=== PATIENT | female | born 1940 | race Caucasian/White ===

== ENCOUNTER → 2023-12-13 11:00 | Outpatient (REF) | payer MEDICARE, BC, SELFPAY | LOC: RAD 11:00 | PROVIDERS: ATTENDING PHYSICIAN Nurse Practitioner; FAMILY PHYSICIAN Family Medicine | DX: M25.561 Pain in right knee (principal) | CPT/HCPCS: 73564 ==

== ENCOUNTER 2025-01-12 23:44 | Inpatient (IN) | payer MEDICARE, BC, SELFPAY ==
[2025-01-12 21:33] VITALS: BP 154/61
[2025-01-12 21:38] VITALS: BP 154/61
[2025-01-12 21:42] VITALS: BMI 19.4
[2025-01-12 22:00] VITALS: BP 172/72
[2025-01-12 22:55] LABS: Hematocrit 27.6 % (37.0-47.0); Hemoglobin 8.9 g/dL (12.0-16.0); Mean Corp Hgb Conc. 32.2 g/dL (33.0-37.0); Mean Corpuscular Volume 82.4 fL (81.0-99.0); Nucleated Red Blood Cells % 0 %; Platelet Count 290 10^3/uL (130-400); Red Cell Dist. Width 15.0 % (11.5-14.5)
--- NOTE | 2025-01-12 22:59 | ED.MUSCINJ ---
HPI-Injury
General
Chief Complaint: Fall
Source: patient
Exam Limitations: none
Time Seen by Provider: 01/12/25 22:21
Nursing documentation reviewed up to this point in time: agreed with
History of Present Illness-Injury
Is this injury a work related problem?: No
Is pt an associate of [facility]/[place]?: No
Initial Injury comments:
84-year-old female from her private home slip and fall with left hip pain, onset just prior to arrival came via EMS no head strike no chest pain or shortness of breath, she lives with her , denies any blood thinner use,
Past History
Past History
ED Past Medical History: Other (Osteoporosis); Negative CAD, HTN or Hypercholesterolemia
Social History
Tobacco: Non-smoker
Alcohol: Daily (1 class of wine)
Drug: None
Personal:
Living: with family
Phy Exam
Physical Exam
Physical Exam:
Physical Exam
General: Elderly female complaining of left hip pain
Neck: No tongue bite no overt signs of head or neck trauma
Heart: s1/s2 regular rate and rhythm, no murmur. equal radial pulses.
Lungs: no acute respiratory distress. clear bilaterally
Abdomen: Not tender
Neuro: alert and oriented. no focal neurological deficits
Skin: no rash
Psychiatric: well kept. interactive and cooperative
Extremities: Left hip held in flexion modest pain with range of motion
Injury Course
Orders/Labs/Results
Orders:
Orders
01/12/25 22:35
Electrocardiogram (*1) Urgent
Reason for Study: Other
Other Reason for Exam: trauma
Cardiac Monitoring- Treatment ONCE
EKG- Treatment ONCE
Morphine Sulfate 4 mg IV NOW STA
CR Hip - LT w/wo Pel 2-3 Vw* Urgent
Comment:
Reason For Exam: pain fal
Include a pelvis x-ray?: Yes
01/12/25 22:47
Type+Screen Urgent
Complete Blood Count/With Diff Urgent
Comprehensive Metabolic Panel Urgent
Abnormal Lab Results
01/12/25
22:47
RBC 3.35 L 10^6/uL
(4.20-5.40)
Hgb 8.9 L g/dL
(12.0-16.0)
Hct 27.6 L %
(37.0-47.0)
MCH 26.6 L pg
(27.0-31.0)
MCHC 32.2 L g/dL
(33.0-37.0)
RDW 15.0 H %
(11.5-14.5)
MPV 11.2 H fL
(7.4-10.4)
Abs Immat Gran (auto) 0.1 H 10^3/uL
(0-0.05)
Absolute Monos (auto) 0.7 H 10^3/uL
(0.1-0.6)
Immature Gran % 0.7 H %
(0-0.5)
01/12/25 22:47
MDM/Problems Addressed
Differential Diagnosis Includes:
Hip contusion hip fracture pelvic fracture femur fracture
*Radiology
Radiology exam reviewed: preliminary read by ED provider
*Pulse Oximetry
SaO2: 96
Oxygen Mode of Delivery: Room air
Patient hypoxic: no
*EKG
Interpreted by ED Provider?: Yes
Interpretation: normal
Comparison EKG: no comparison EKG present
Heart Rate: 76
Rate: normal
Rhythm: sinus
Ischemia: non-specific ST changes
*Lsw Interpretation
Rate: normal
Interpretation: normal
Heart Rate: 78
Rhythm: sinus
*Critical Care Note
Total Time (30-74mins, 75-104mins- exclusive of procedures): Not Applicable
Update Note
Update Note:
11 PM update x-ray noted
Message sent to hospitalist and orthopedist on-call
ED Attending Note
-
Portions of this chart may have been created with voice recognition software.� Occasional wrong word or��sound alike� substitutions may have occurred due to the inherent limitations of voice recognition software.
Discharge Plan
Departure
Patient Disposition: Admit
Date of Disposition: 01/12/25
Time of Disposition: 23:05
Admit to: Med/Surg
Presentation/result/management discussed w/ accepting MD/DO: Hospitalist
Patient with high blood pressure during this ER visit?: No
Condition: Fair
Discharge Problem:
Closed fracture of left hip
Prescriptions:
No Action
acetaminophen 325 mg Tablet
650 mg PO Q6HPRN PRN (Reason: mild pain/ fever>100.5F) Qty: 30 0RF
alendronate [Fosamax] 70 mg Tablet
70 mg PO DYKES
multivitamin Tablet
1 tab PO DAILY
[place] 3
1 cap PO DAILY
Probiotic
1 tab PO DAILY
lidocaine 4 % Adhesive Patch,Medicated
1 patch topical DAILY Qty: 10 0RF
Rx Instructions:
lower back
furosemide 20 mg Tablet
20 mg PO DAILY 30 Days Qty: 30 0RF
nifedipine 30 mg Tablet Extended Release
30 mg PO DAILY 30 Days Qty: 30 0RF
sodium chloride 1,000 mg Tablet,Soluble
1,000 mg PO BID 30 Days Qty: 60 0RF
Referrals:
Tucker Castrejon MD [Family Provider, Family Practice]
Interventions
Interventions:
*ED COVID-19 Vaccine History Last Done: 01/12/25 21:41
*ED Influenza Vaccine History Last Done: 01/12/25 21:41
ED-Musculoskeletal Assessment Last Done: 01/12/25 22:48
ED- Neurological Assessment Last Done: 01/12/25 22:48
ED-Skin Assessment Last Done: 01/12/25 22:49
Discharge Date and Time
Print Language: MALAWIAN
[2025-01-12 23:13] LABS: ALT (SGPT) 19 U/L (0-35); AST (SGOT) 30 U/L (14-36); Albumin 4.3 g/dl (3.5-5.0); Alkaline Phosphatase 55 U/L (38-126); Blood Urea Nitrogen 26 mg/dl (7-17); Calcium 9.2 mg/dl (8.4-10.2); Carbon Dioxide 26 mmol/L (22-30); Chloride 100 mmol/L (98-107); Estimated Creatinine Clearance 53 ml/min; Glucose 91 mg/dl (70-99); Potassium 4.4 mmol/L (3.5-5.1); Sodium 132 mmol/L (135-145); Total Protein 6.9 g/dl (6.3-8.2); eGFR > 60.00
--- NOTE | 2025-01-12 23:25 | HPS.HSE ---
Family Physician
-
Family Physician: Tucker Castrejon
Chief Complaint
-
Fall
History of Present Illness
This is a 84-year-old female past medical history significant hypertension, osteoporosis presenting to the emergency department following a slip and fall.
There was no loss of consciousness. She denied any head strike, she denies any chest pain, she denied feeling dizzy lightheaded short of breath or having chest pain nausea vomiting or diaphoresis.
In the emergency department patient was found to have a closed fracture of the left hip. Blood pressure was stable at 172/72 with a pulse rate of 69 and he was satting 96% on room air. ECG shows a normal sinus rhythm with a rate of 71 with some
sinus arrhythmia. CBC notable for hemoglobin of 8.9 but otherwise unremarkable. Electrolyte BUN/creatinine were stable.
Medical History
Past Medical History
Past Medical History: Reports Other
Additional Past Medical History:
Osteoporosis
Past Surgical History: Reports None
Social History
Tobacco: Non-smoker
Alcohol: Occasional
Drug: None
Personal:
Living: With Family
Family History
Family History: Not pertinent
Allergies / Home Medications
Allergies reflects when Allergies were last updated in [employer].
Home Medications with original date entered in [employer]
Allergy/Medication List:
Allergies
Allergy/AdvReac Type Severity Reaction Status Date / Time
No Known Allergies Allergy Verified 02/22/23 11:35
Home Medications
acetaminophen 325 mg tablet 650 mg PO Q6HPRN PRN mild pain/ fever>100.5F #30 tabs 11/29/22
[place] 3 1 cap PO DAILY 02/22/23
Probiotic 1 tab PO DAILY 02/22/23
alendronate 70 mg tablet (Fosamax) 70 mg PO DYKES 02/22/23
akphyso-xhfnuglryzlkk-nzcrtiok 250 mg-250 mg-65 mg tablet (Excedrin Migraine) 2 tab PO DAILYPRN PRN mild pain 02/22/23
ibuprofen 200 mg capsule 400 mg PO Q6HPRN PRN mild pain 02/22/23
multivitamin 1 tab PO DAILY 02/22/23
Review of Systems
-
Constitutional: Reports No Symptoms
EENT: Reports No Symptoms
Respiratory: Reports No Symptoms
Cardiac: Reports No Symptoms
Abdomen/GI: Reports No Symptoms
: Reports No Symptoms
Musculoskeletal: Reports Joint Pain
Skin: Reports No Symptoms
Neurological: Reports No Symptoms
Endocrine: Reports No Symptoms
Hematologic/Lymphatic: Reports No Symptoms
Psych: Reports No Symptoms
Physical Exam
Vital Signs
Vital Signs
Temp Pulse Resp BP Pulse Ox
97.6 F 69 22 172/72 96
01/12/25 21:33 01/12/25 22:00 01/12/25 22:00 01/12/25 22:00 01/12/25 23:01
Physical Exam
General: Well Developed and Conversant
HEENT: NormoCephalic and Atraumatic
Respiratory: Clear and Non Labored Respirations
Cardiac: S1/S2 and Regular Rhythm
Breast: Deferred by me
GI: Soft, Non Tender and Normal Bowel Sounds (hyperactive )
Rectal: Deferred by Provider
Musculoskeletal: No Edema and Other
Skin: Warm and Dry
Neuro: Awake and AO x 3
Hematologic/Lymphatic: No Lymphadenopathy
Psych: Calm
Laboratory Results
-
01/12/25 22:47
01/12/25 22:47
Laboratory Results
Total Bilirubin 0.3 mg/dl (0.2-1.3) 01/12/25 22:47
AST 30 U/L (14-36) 01/12/25 22:47
ALT 19 U/L (0-35) 01/12/25 22:47
Alkaline Phosphatase 55 U/L (38-126) 01/12/25 22:47
Data Reviewed
-
Diagnostic Radiology: Image Personally Visualized and interpreted
Medical Tests (Nuc Med, Echo, EKG etc): Image Personally Visualized and interpreted
Lab Data: Labs Reviewed by me
Impression/Plan
-
IMPRESSION:
84-year-old with history of osteoporosis, hypertension presenting to the emergency department following a slip and fall and found to have a left hip fracture. He is vascularly intact. She she is not on any blood thinners.
PLAN:
Left hip fracture
- Admit to [facility]
-N.p.o. after midnight
-Pain control, gentle hydration
-Fracture order sets
-PT eval
- no thinners pending surgery
- surgery consulted, plan for or in am
DVT PPX - SCDs for now
Code status - full code
[2025-01-12] MEDS: MORPHINE SULFATE 4 MG IV (23:34)
[2025-01-12 23:39] VITALS: BP 158/62
[2025-01-13] VITALS (19 sets, daily range): BP systolic 122–180; BP diastolic 53–71
[2025-01-13] MEDS: SENOKOT PO (03:46)
[2025-01-13] MEDS: COLACE PO (03:46)
[2025-01-13] MEDS: TYLENOL 650 MG PO ×4 (05:32→20:08)
[2025-01-13] MEDS: ROXICODONE 5 MG PO (05:33)
--- NOTE | 2025-01-13 05:55 | CON.ORTHO ---
Consultation
-
Date/Time Consultation Requested: 01/12/2025 @ 23:07
Date/Time Consultation Performed: 01/13/2025 @ 5:30 AM
Requesting Provider: Dr. Elver Gerber DO
Performing Provider: Pablo Smith PA-C for Dr. Mathew Metcalf MD
Reason for Consultation: Left Hip Fracture
Consultation - Orthopedics
History
Orthopedic Surgery Note
CC: Left Hip Pain s/p Mechanical Fall 01/12/2025
HPI: The patient is a 84-year-old female with a past medical history significant for Hypertension and Osteoporosis who presents to [facility] ED following a mechanical slip and fall onto her left hip. She denies any head strike or loss of consciousness.
X-rays obtained in the ED revealed a displaced left proximal femur fracture. She is resting comfortably on her stretcher present, but does endorse pain about the left hip with range of motion. She denies any pain elsewhere present. She ambulates
with a walker for assistance. She lives in a two-story home with her . Orthopedic surgery was consulted for further treatment recommendations moving forward.
PMH/PSH: Hypertension and Osteoporosis.
Medications: Reviewed.
Family History: Family history was reviewed. Noncontributory.
Social history: Nonsmoker, no illicit drugs.
Exam
General appearance: Pleasant. No acute distress.
Head: Normocephalic/atraumatic
Nose: No lesions or discharge.
Skin: No obvious rashes or open wounds
Lungs: No audible wheezing, no cough or sputum production
Musculoskeletal:
LLE:
Physical examination of the left hip reveals no obvious erythema, ecchymosis or lesions. Leg is shortened and externally rotated. Tenderness to palpation about the left hip. No tenderness to palpation about the left knee. (+) [place]. Thigh is
soft and compressible. Calf is soft and nontender. She is able to plantarflex and dorsiflex her left ankle. NVI distally.
Imaging:
Plain radiographs of the left hip, including 4 views, was obtained at today's office encounter and was personally interpreted by myself. On my independent radiographic interpretation, I note a LEFT displaced proximal femur fracture.
Assessment: 84-year-old female with a LEFT displaced proximal femur fracture.
Plan: Unfortunately, Regi sustained a left displaced proximal femur fracture in her fall. Treatment options were discussed with the patient as well as her son (Carl) this morning. Shared decision was to proceed with operative management with a
LEFT hip cephalomedullary nail. The risks, benefits, alternatives, recovery process and potential complications were discussed in detail. She and her son verbalized understanding, and would like to proceed with surgery. We will plan to proceed to
OR later today under the direction of Dr. Metcalf. Surgical and blood consents were signed and scanned into patient chart. A paper copy was left at the OR front end ui developer.
-- NWB to LLE until surgery.
-- Remain NPO
-- Pain control prn. Ice prn for pain and edema control.
-- T+S completed. Hgb 8.9 01/12/2025. Hgb this AM pending.
-- Abx ordered to OR.
-- Orthopedics will continue to follow along.
Allergies / Home Medications
Allergy/AdvReac Type Severity Reaction Status Date / Time
No Known Allergies Allergy Verified 01/12/25 21:40
�Medication �Instructions �Recorded
acetaminophen 325 mg tablet 650 mg (2 x 325 mg) PO Q6HPRN PRN 11/29/22
mild pain/ fever>100.5F #30 tabs
[place] 3 1 cap PO DAILY Supplement 02/22/23
Probiotic 1 tab PO DAILY Supplement 02/22/23
alendronate 70 mg tablet (Fosamax) 70 mg PO DYKES osteoporosis 02/22/23
multivitamin 1 tab PO DAILY Supplement 02/22/23
furosemide 20 mg tablet 20 mg PO DAILY 30 days #30 tabs 02/28/23
lidocaine 4 % topical patch 1 patch topical DAILY #10 ea 02/28/23
nifedipine 30 mg tablet,extended 30 mg PO DAILY 30 days #30 tabs 02/28/23
release
sodium chloride 1,000 mg soluble 1,000 mg PO BID 30 days #60 tabs 02/28/23
tablet
Vital Signs / Lab Results
Temp Pulse Resp BP Pulse Ox
97.6 F 72 13 164/63 96
01/12/25 21:33 01/13/25 02:15 01/13/25 02:15 01/13/25 02:00 01/13/25 02:15
01/12/25 22:47
01/12/25 22:47
[2025-01-13] MEDS: COLACE 100 MG PO ×2 (08:25→20:08)
[2025-01-13] MEDS: PROCARDIA XL (EXTENDED RELEASE) 30 MG PO (08:25)
[2025-01-13] MEDS: SENOKOT 17.2 MG PO ×2 (08:26→20:08)
[2025-01-13] MEDS: SODIUM CHLORIDE 1 GRAM PO (08:26)
--- NOTE | 2025-01-13 09:42 | PHANOTE ---
MED REC NOTE- CALLED PATIENT CAREGIVER AT HOME NURSE AT [phone] FIRST NAME RICHELLE OR [phone]
--- NOTE | 2025-01-13 09:44 | W.PN.HOSP.TC ---
Today's Communication/Plan
-
See plan
Assessment / Plan
Assessment / Plan
Impression:
Left femoral fracture secondary to mechanical fall and osteoporosis
Conditions prior to admission
Osteoporosis with prior history of compression fractures
Chronic ambulatory dysfunction ambulates with walker.
Aortic stenosis, mild by echo 2022
Chronic hyponatremia.
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
Plan
Left femoral fracture secondary to mechanical fall and osteoporosis.
Orthopedic input appreciated with plan for ORIF.
Preoperative clearance:
RCRI result major cardiovascular risk factors with low risk at 0.4-1%
Functional capacity close to 4 METS assuming patient with significant cognitive dysfunction.
Requires no additional preoperative workup.
Aortic stenosis, mild
Left sternal border murmur
ECG normal sinus rhythm with no ischemia
Recent echo 11/27 with LVEF 60-65%, mild aortic stenosis
Volume status compensated.
Hypertension on nifedipine [employer]. Will continue with caution. Avoiding hypotension
Chronic hyponatremia
Sodium 132 upon presentation
Formerly on salt tabs and Lasix.
Monitor postoperatively.
Chronic normocytic anemia
Update iron and B12 stores
Update TSH
Full code.
Anticipated Discharge: > 48 hours
Subjective/Interval History
-
Date of Service: January 13, 2025
Objective Data
-
Labs:
Laboratory Results
01/12/25
22:47
WBC 7.2
Hgb 8.9 L
Hct 27.6 L
Plt Count 290
Sodium 132 L
Potassium 4.4
Chloride 100
Carbon Dioxide 26
BUN 26 H
Creatinine 0.7
Glucose 91
Calcium 9.2
Total Bilirubin 0.3
AST 30
ALT 19
Alkaline Phosphatase 55
Vital Signs:
Vital Signs
Temp Pulse Resp BP Pulse Ox
97.9 F 68 20 180/71 96
01/13/25 09:02 01/13/25 09:02 01/13/25 09:02 01/13/25 09:02 01/13/25 09:02
Physical Exam
-
General: Well Developed and No Apparent Distress
HEENT: Normocephalic, Atraumatic and Moist Mucous Membranes
Respiratory: Clear to Auscultation
Cardiac: Regular Rhythm, S1/S2 and Murmur (4/6 systolic at the left sternal border); Negative Rub or Gallop
GI: Soft, Nontender, Nondistended and Normal Bowel Sounds; Negative Organomegaly
Rectal: Deferred by Provider
Musculoskeletal: No Clubbing, No Cyanosis and No Edema
Skin: Negative Rash
Neuro: Nonfocal/Grossly Intact
[2025-01-13 10:24] LABS: Iron 39 ug/dl (37-170)
[2025-01-13 10:33] LABS: Total Iron Binding Capacity 419 ug/dl (265-497)
[2025-01-13 12:02] LABS: TSH 1.67 uIU/ml (0.47-4.68)
[2025-01-13 12:06] LABS: Ferritin 12.2 ng/ml (11.1-264.0)
[2025-01-13 12:21] LABS: Vitamin B12 387 pg/ml (239-931)
[2025-01-13] MEDS: MORPHINE SULFATE 1 MG IV (14:04)
[2025-01-13] MEDS: TYLENOL PO (15:50)
--- NOTE | 2025-01-13 16:15 | PTCARENOTE ---
report given to OR nurse and pt transferred to OR with belongings
--- NOTE | 2025-01-13 20:23 | PTCARENOTE ---
19:46 pt rec'vd from PACU, assessed left gamma nail sx site with PACU nurse, sites drsging intact, scant drainage noted, pt drowsy but easily arousable to voice. Pt oriented to unit.
[2025-01-14] VITALS (8 sets, daily range): BP systolic 112–167; BP diastolic 41–76; PULSE 63–74; O2SAT 96–99
[2025-01-14] MEDS: TYLENOL 650 MG PO ×6 (00:01→19:58)
[2025-01-14 07:41] LABS: Hematocrit 25.0 % (37.0-47.0); Hemoglobin 7.9 g/dL (12.0-16.0); Mean Corp Hgb Conc. 31.6 g/dL (33.0-37.0); Mean Corpuscular Volume 86.5 fL (81.0-99.0); Nucleated Red Blood Cells % 0 %; Platelet Count 233 10^3/uL (130-400); Red Cell Dist. Width 15.0 % (11.5-14.5)
--- NOTE | 2025-01-14 07:51 | W.PN.ORTHO ---
Today's Communication / Plan
-
POD #1 s/p left hip gamma nail 01/13/[address] Metcalf.
-WBAT with walker.
-PT/OT as able.
-DVT prophylaxis - defer to primary team preferences.
-Dressings to remain in place x 1 week.
-[place] to come out at 2 weeks post op.
-Appreciate case management and PT recommendations for discharge once stable.
-Will continue to follow along.
Assessment
.
Distal Motor Intact: Yes
Dressing:
Clean, dry and intact.
Assessment:
POD #1 s/p left hip gamma nail 01/13/[address] Metcalf.
-WBAT with walker.
-PT/OT as able.
-DVT prophylaxis - defer to primary team preferences.
-Dressings to remain in place x 1 week.
-[place] to come out at 2 weeks post op.
-Appreciate case management and PT recommendations for discharge once stable.
-Will continue to follow along.
Plan
.
Surgery / Date: 01/13/[address] Metcalf
Activity:
Out of bed.
PT/OT
Subjective
.
.:
Patient resting comfortably in bed. No complaints of pain at rest.
Vital Signs and Labs
.
Vital Signs and Labs:
Lab Results
01/14/25 06:07
Temp Pulse Resp BP Pulse Ox
97.6 F 71 16 167/65 97
01/14/25 03:03 01/14/25 03:03 01/14/25 03:03 01/14/25 03:03 01/14/25 03:03
Physical Exam
-
Left hip: dressings c/d/i with minimal drainage. Minimal swelling. Gentle ROM with mild pain. Calf soft and non tender to palpation. N/v intact distally.
[2025-01-14 08:06] LABS: Blood Urea Nitrogen 17 mg/dl (7-17); Calcium 8.9 mg/dl (8.4-10.2); Carbon Dioxide 28 mmol/L (22-30); Chloride 101 mmol/L (98-107); Estimated Creatinine Clearance 62 ml/min; Glucose 133 mg/dl (70-99); Potassium 4.7 mmol/L (3.5-5.1); Sodium 133 mmol/L (135-145); eGFR > 60.00
[2025-01-14] MEDS: SENOKOT 17.2 MG PO ×2 (08:39→19:58)
[2025-01-14] MEDS: PROCARDIA XL (EXTENDED RELEASE) 30 MG PO (08:39)
[2025-01-14] MEDS: ANCEF 5 IV ×2 (08:39)
[2025-01-14] MEDS: COLACE 100 MG PO ×2 (08:39→19:58)
--- NOTE | 2025-01-14 13:04 | CM ---
Addendum entered by J Carlos Ellis 01/14/25 15:15:
[facility] montessori program director confirmed that pt is accepted for admission tomorrow.
[facility] SNF undecided.
Both pt and her son chago are aware, expressed their agreement with [facility].
IMM reviewed, placed on chart, pt has a copy.
will arrange ambulance transport, BLS. PMNC completed and left with .
Please call [facility] montessori program director Valeri to coordinate discharge.
[facility] nursing report: [phone]
Discharge instructions fax: [phone]
D/C plan: [facility] tomorrow 01/15/25.
Original Note:
CM following re: discharge planning.
Reviewed pt's chart,. met with pt and spoke to pt's son chago over the phone.
Pt is an 84 year old female, admitted with primary dx of Left femoral fracture secondary to mechanical fall and osteoporosis. POD #1 s/p left hip gamma nail. PMH: hypertension, osteoporosis.
Pt is not a great historian, information obtained from pt's son Chago. Pt lives with 2SH, has 2 children, son lives in [place], daughter lives in [place]. Pt has 24/ caregiver services, ambulates with a walker.
PT and OT evaluations noted - SNF level of care recommended. CM discussed it with pt's son Chago and he stated he discussed it with his sister and following SNFs preferred: [facility] and [facility] SNF. A referral to above SNFs made.
According to pt will be ready for discharge tomorrow. [facility] to confirm today a bed availability for to [facility]. .
PCP: Tucker Castrejon
Pharmacy: [facility]
D/C plan: preferred SNF.
CM will follow to assist pt with discharge to a preferred SNF tomorrow.
--- NOTE | 2025-01-14 13:29 | PN.CDI ---
CDI
- -
CDI:
Physician Documentation Request
Admit Date: 01/12/25 23:44
Dear Doctor Marcela,
Please review the following and provide your response in the progress notes.
Clinical Indicators:
Height: 5 ft 8 in
Weight:127 lb
BMI:19.4
If possible, please provide an associated diagnosis related to the abnormal BMI, such as:
Underweight
Cachectic
- Other
Use of terms such as suspected, likely, concern for, or probable (associated with a specific diagnosis that is being evaluated, monitored, or treated as if it exists) are acceptable and can be coded in the inpatient setting, when documented at the
time of discharge.
Thank you,
Lamar Clifton RN
CDI Specialist
[facility]
Please use your independent medical judgment in providing your response.
--- NOTE | 2025-01-14 14:52 | W.PN.HOSP.TC ---
Addendum entered and electronically signed by Raudel Medrano MD 01/17/25 16:55:
Underweight with BMI of 19
Original Note:
Today's Communication/Plan
-
PT
DVT prophylaxis with aspirin
Monitor hemoglobin
IV iron
Follow sodium level
Discharge planning to half-way facility
Assessment / Plan
Assessment / Plan
Impression:
Left femoral fracture secondary to mechanical fall and osteoporosis
Conditions prior to admission
Osteoporosis with prior history of compression fractures
Chronic ambulatory dysfunction ambulates with walker.
Aortic stenosis, mild by echo 2022
Chronic hyponatremia.
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
Preoperative clearance:
RCRI result major cardiovascular risk factors with low risk at 0.4-1%
Functional capacity close to 4 METS assuming patient with significant cognitive dysfunction.
Requires no additional preoperative workup.
Plan
Left femoral fracture secondary to mechanical fall and osteoporosis.
Status post left hip intramedullary nail on 01/13
Continue PT
Start aspirin 325 mg daily for DVT prophylaxis for 28 days
Acute on chronic postoperative anemia with hemoglobin drifting down from 7.9
Iron deficiency
Start IV iron
Follow hemoglobin. Consider transfusion if drifts below 7
Aortic stenosis, mild
Left sternal border murmur
ECG normal sinus rhythm with no ischemia
Recent echo 11/27 with LVEF 60-65%, mild aortic stenosis
Volume status compensated.
Hypertension on nifedipine [employer]. Will continue with caution. Avoiding hypotension
Chronic hyponatremia
Sodium 132 upon presentation
TSH within normal limits
Formerly on salt tabs and Lasix.
Monitor postoperatively.
Full code.
Anticipated Discharge: 24 - 48 hours
Subjective/Interval History
-
Date of Service: January 14, 2025
Objective Data
-
Labs:
Laboratory Results
01/14/25
06:07
WBC 7.5
Hgb 7.9 L
Hct 25.0 L
Plt Count 233
Sodium 133 L
Potassium 4.7
Chloride 101
Carbon Dioxide 28
BUN 17
Creatinine 0.6
Glucose 133 H
Calcium 8.9
Vital Signs:
Vital Signs
Temp Pulse Resp BP Pulse Ox
98.7 F 81 18 113/69 97
01/14/25 11:10 01/14/25 11:10 01/14/25 11:10 01/14/25 11:10 01/14/25 11:10
I&O
01/13/25 01/14/25 01/15/25
06:59 06:59 06:59
Intake Total 420 / 420 240 / 240
Balance 420 / 420 240 / 240
Physical Exam
-
General: Well Developed and No Apparent Distress
HEENT: Normocephalic, Atraumatic and Moist Mucous Membranes
Respiratory: Clear to Auscultation
Cardiac: Regular Rhythm, S1/S2 and Murmur (4/6 systolic at the left sternal border); Negative Rub or Gallop
GI: Soft, Nontender, Nondistended and Normal Bowel Sounds; Negative Organomegaly
Rectal: Deferred by Provider
Musculoskeletal: No Clubbing, No Cyanosis and No Edema
Skin: Negative Rash
Neuro: Nonfocal/Grossly Intact
[2025-01-14] MEDS: ASPIRIN 325 MG PO (14:57)
[2025-01-15] MEDS: TYLENOL 650 MG PO ×4 (00:03→13:04)
[2025-01-15] MEDS: ROXICODONE 5 MG PO (03:30)
[2025-01-15 05:56] LABS: Hematocrit 21.4 % (37.0-47.0); Mean Corp Hgb Conc. 32.2 g/dL (33.0-37.0); Mean Corpuscular Volume 82.6 fL (81.0-99.0); Nucleated Red Blood Cells % 0 %; Platelet Count 219 10^3/uL (130-400); Red Cell Dist. Width 15.0 % (11.5-14.5)
[2025-01-15 05:57] LABS: Hemoglobin 7.0 g/dL (12.0-16.0)
[2025-01-15 06:13] LABS: Blood Urea Nitrogen 25 mg/dl (7-17); Calcium 8.2 mg/dl (8.4-10.2); Carbon Dioxide 27 mmol/L (22-30); Chloride 101 mmol/L (98-107); Estimated Creatinine Clearance 53 ml/min; Glucose 95 mg/dl (70-99); Potassium 4.1 mmol/L (3.5-5.1); Sodium 132 mmol/L (135-145); eGFR > 60.00
[2025-01-15 07:10] VITALS: BP 123/58
[2025-01-15] MEDS: PROCARDIA XL (EXTENDED RELEASE) 30 MG PO (08:18)
--- NOTE | 2025-01-15 08:18 | W.PN.ORTHO ---
Today's Communication / Plan
-
84F POD2 s/p left hip CMN 01/13/[address] Metcalf.
-WBAT with walker.
-PT/OT as able.
-DVT prophylaxis - defer to primary team preferences.
-Hgb at 7.0; no bleeding through incisions or underlying hematoma- continue to monitor and consider transfusion per primary
-Dressings to remain in place x 1 week.
-[place] to come out at 2 weeks post op.
-Appreciate case management and PT recommendations for discharge once stable.
-Ortho surg will continue to follow pending H&H monitoring and stability
Assessment
.
Distal Motor Intact: Yes
Dressing:
Clean, dry and intact. No firm unerlying mass under dressings to suggest hematoma, minimal strikethrough
Plan
.
Surgery / Date: 01/13/[address] Metcalf
Activity:
Out of bed.
PT/OT
Subjective
.
.:
Patient resting comfortably.
Vital Signs and Labs
.
Vital Signs and Labs:
Lab Results
01/15/25 05:15
01/15/25 05:15
Temp Pulse Resp BP Pulse Ox
97.9 F 74 16 123/58 97
01/15/25 07:10 01/15/25 07:10 01/15/25 07:10 01/15/25 07:10 01/15/25 07:10
[2025-01-15] MEDS: SENOKOT 17.2 MG PO (08:19)
[2025-01-15] MEDS: ASPIRIN 325 MG PO (08:20)
[2025-01-15] MEDS: COLACE 100 MG PO (08:20)
--- NOTE | 2025-01-15 10:29 | W.PN.HOSP.TC ---
Addendum entered and electronically signed by Alexandra Steele MD 01/19/25 10:38:
Acute blood loss anemia with Iron deficiency Anemia
Original Note:
Today's Communication/Plan
-
1 unit PRBC and DC later evening around 5pm
Dc Narcotics
Assessment / Plan
Assessment / Plan
Impression:
Left femoral fracture secondary to mechanical fall and osteoporosis
Conditions prior to admission
Osteoporosis with prior history of compression fractures
Chronic ambulatory dysfunction ambulates with walker.
Aortic stenosis, mild by echo 2022
Chronic hyponatremia.
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
Preoperative clearance:
RCRI result major cardiovascular risk factors with low risk at 0.4-1%
Functional capacity close to 4 METS assuming patient with significant cognitive dysfunction.
Requires no additional preoperative workup.
Plan
Left femoral fracture secondary to mechanical fall and osteoporosis.
Status post left hip intramedullary nail on 01/13
Continue aspirin 325 mg daily for DVT prophylaxis for 28 days
PT/OT for SNF planned today
Acute on chronic postoperative anemia with hemoglobin drifting down from 7.9 now to 7.0
1 unit PRBC
oral iron at discharge; s/p 1 bag IV iron
Aortic stenosis, mild
Left sternal border murmur
ECG normal sinus rhythm with no ischemia
Recent echo 11/27 with LVEF 60-65%, mild aortic stenosis
Volume status compensated.
Hypertension on nifedipine [facility]. Will continue with caution. Avoiding hypotension
Chronic hyponatremia
Sodium 132 upon presentation
TSH within normal limits
Formerly on salt tabs and Lasix.
Monitor postoperatively.
Toxic encephalopathy from opiates
- stop opiates
Full code.
More than 30 minutes spent in discharge including
Final examination of the patient
Summarizing hospital stay
Instructions for continuing care to all relevant caregivers
Preparation of discharge records, prescriptions, and referral forms
Total time spent (in minutes): 41
Anticipated Discharge: Today
Subjective/Interval History
-
Date of Service: January 15, 2025
resting comfortably
confused with opiate pain meds
Objective Data
-
Labs:
Laboratory Results
01/15/25
05:15
WBC 9.6
Hgb 7.0 L
Hct 21.4 L
Plt Count 219
Sodium 132 L
Potassium 4.1
Chloride 101
Carbon Dioxide 27
BUN 25 H
Creatinine 0.7
Glucose 95
Calcium 8.2 L
Vital Signs:
Vital Signs
Temp Pulse Resp BP Pulse Ox
97.9 F 74 16 123/58 97
01/15/25 07:10 01/15/25 07:10 01/15/25 07:10 01/15/25 07:10 01/15/25 07:10
I&O
01/14/25 01/15/25 01/16/25
06:59 06:59 06:59
Intake Total 420 / 420 240 / 240
Balance 420 / 420 240 / 240
Physical Exam
-
General: No Apparent Distress
HEENT: Normocephalic and Atraumatic
Respiratory: Negative Wheezes
Cardiac: Regular Rhythm and S1/S2
GI: Soft
Genito-urinary: No Costovertebral Tender
Musculoskeletal: Other (surgical dressing without bleeding/strikethrough. No sign of hematoma)
Neuro: AO x 3
Psych: Calm and Confused
Data Reviewed
-
Total Time Spent with Patient (in minutes): 41
Labs: Labs Reviewed by me
[2025-01-15 10:46] VITALS: BP 105/45
--- NOTE | 2025-01-15 10:58 | W.DS.TRANS ---
DC Summary - Proofer
-
Discharge Instructions:
Discharge Diagnosis/Procedures Left femoral fracture secondary to mechanical
fall and osteoporosis; Status post left hip
intramedullary nail on 01/13. Post-op anemia
requiring blood
Diet Regular
Activity As tolerated
Additional Activity WBAT with walker.
Bathing Restrictions None
Other Services PT,OT
Instructions:
Stand-Alone Forms:
Changes to Home Medications: No
Discharge Medications:
DC Medications w/original date entered in [facility]
alendronate 70 mg tablet (Fosamax) 70 mg PO DYKES osteoporosis 02/22/23
omega-3 fatty acids-fish oil 684 mg-1,200 mg capsule,delayed release 1 cap PO DAILY Supplement ##0 02/22/23
nifedipine 30 mg tablet,extended release 30 mg PO DAILY 30 days #30 tabs 02/28/23
ascorbic acid (vitamin C) 1,000 mg tablet (Vitamin C) 2,000 mg PO QPM 01/13/25
carboxymethylcellulose 0.5 %-glycerin 0.9 % eye drops (Refresh Optive) 1 drp BOTH EYES BID 01/13/25
cholecalciferol (vitamin D3) 25 mcg (1,000 unit) tablet (Vitamin D3) 25 mcg PO QPM 01/13/25
cranberry extract 200 mg capsule (Ellura) 200 mg PO QPM 01/13/25
d-mannose 500 mg capsule 500 mg PO QPM 01/13/25
escitalopram oxalate 10 mg tablet (Lexapro) 10 mg PO DAILY 01/13/25
lidocaine 4 % topical patch 1 patch topical DAILYPRN PRN LOWER BACK PAIN 01/13/25
omega 3-pgq-tjq-fish oil 1,000 mg (120 mg-180 mg) capsule (Fish Oil) 1 cap PO DAILY 01/13/25
acetaminophen 325 mg tablet 650 mg (2 x 325 mg) PO Q4HWA #100 tabs 01/15/25
aspirin 325 mg tablet 325 mg PO DAILY #28 tabs 01/15/25
docusate sodium 100 mg capsule 100 mg PO BID #60 caps 01/15/25
ferrous sulfate 325 mg (65 mg iron) tablet 325 mg PO Q OTHER DAY #30 tabs 01/15/25
sennosides 8.6 mg tablet (Mary-arleen) 17.2 mg (2 x 8.6 mg) PO BID #60 tabs 01/15/25
Home Medication Changes
Pending Results: No
Total time spent discharging patient (in min): 42
[2025-01-15 11:09] VITALS: BP 115/72
--- NOTE | 2025-01-15 11:33 | CM ---
Pt for dc today to [facility]. 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
Family notified.
[facility] nursing report: [phone]
Discharge instructions fax: [phone]
[2025-01-15 13:23] VITALS: BP 122/44
[2025-01-15] MEDS: FLUSH (NSS) 1 FLUSH IV (13:26)
[2025-01-15] MEDS: FERRLECIT 110 MG IV (14:08)
[2025-01-15 14:30] VITALS: BP 115/46; BP 96/47
[2025-01-15 15:05] VITALS: BP 116/74
--- NOTE | 2025-01-18 08:58 | PN.CDI ---
CDI
- -
CDI:
Physician Documentation Request
Admit Date: 01/12/25 23:44
Dear Doctor,
Please review the following and provide your response in the progress notes.
Clinical Indicators:
Pt admitted with Left femoral fracture secondary to mechanical fall and osteoporosis s/p surgery 01/13
Progress notes 01/14 , 'Acute on chronic postoperative anemia with hemoglobin drifting down from 7.9Iron deficiency Start IV iron...'
Progress note 01/15 . ' Acute on chronic postoperative anemia with hemoglobin drifting down from 7.9 now to 7.01 unit PRBC oral iron at discharge; s/p 1 bag IV iron..'
Discharge summary ,' . Post-operative anemia requiring blood....'
Based on the above, could you clarify, in your progress note, which of the following is the most likely type of anemia you are evaluating, monitoring and/or treating?
Acute blood loss anemia with Iron deficiency Anemia
Chronic iron deficiency anemia only
Other ( please specify)
Use of terms such as suspected, likely, concern for, or probable (associated with a specific diagnosis that is being evaluated, monitored, or treated as if it exists) are acceptable and can be coded in the inpatient setting, when documented at the
time of discharge.
Thank you,
Lamar Clifton RN
CDI Specialist
[facility] [employer]
Please use your independent medical judgment in providing your response.
== END 2025-01-15 16:45 | DRG 480 ==
LOC: 2 SOUTH 23:44
PROVIDERS: Internal Medicine; ADMITTING PHYSICIAN Internal Medicine; ATTENDING PHYSICIAN Internal Medicine; CONSULT PHYSICIAN Orthopaedic Surgery Hand Surgery; EMERGENCY PHYSICIAN Emergency Medicine; FAMILY PHYSICIAN Family Medicine
PROC: 0QS706Z Reposition Left Upper Femur with Intramedullary Internal Fixation Device, Open Approach (ICD-10-PCS; 2025-01-13)
PROC: 30233N1 Transfusion of Nonautologous Red Blood Cells into Peripheral Vein, Percutaneous Approach (ICD-10-PCS; 2025-01-15)
DX: M80.052A Age-related osteoporosis with current pathological fracture, left femur, initial encounter for fracture (principal); G92.9 Unspecified toxic encephalopathy; D62 Acute posthemorrhagic anemia; E87.1 Hypo-osmolality and hyponatremia; S72.142A Displaced intertrochanteric fracture of left femur, initial encounter for closed fracture; W01.0XXA Fall on same level from slipping, tripping and stumbling without subsequent striking against object, initial encounter; D64.9 Anemia, unspecified; F03.90 Unspecified dementia, unspecified severity, without behavioral disturbance, psychotic disturbance, mood disturbance, and anxiety; Z79.83 Long term (current) use of bisphosphonates; Z79.899 Other long term (current) drug therapy; Z79.82 Long term (current) use of aspirin
CPT/HCPCS: 73502; 73552; 76000; 80048; 80053; 82607; 82728; 83540; 83550; 84443; 85025; 86850; 86900; 86901; 86920; 93005; 97116; 97163; 97167; C1713; J2916; P9016

== ENCOUNTER → 2025-01-19 11:03 | Outpatient (REF) | payer OTHER, MEDICARE, BC, SELFPAY ==
[2025-01-19 13:09] LABS: Hematocrit 25.1 % (37.0-47.0); Hemoglobin 8.1 g/dL (12.0-16.0); Mean Corp Hgb Conc. 32.3 g/dL (33.0-37.0); Mean Corpuscular Volume 84.8 fL (81.0-99.0); Platelet Count 381 10^3/uL (130-400); Red Cell Dist. Width 15.8 % (11.5-14.5)
[2025-01-19 13:44] LABS: ALT (SGPT) 20 U/L (0-35); AST (SGOT) 24 U/L (14-36); Albumin 3.4 g/dl (3.5-5.0); Alkaline Phosphatase 62 U/L (38-126); Blood Urea Nitrogen 14 mg/dl (7-17); Calcium 8.4 mg/dl (8.4-10.2); Carbon Dioxide 26 mmol/L (22-30); Chloride 98 mmol/L (98-107); Glucose 115 mg/dl (70-99); Magnesium 2.1 mg/dl (1.6-2.3); Potassium 3.9 mmol/L (3.5-5.1); Sodium 130 mmol/L (135-145); Total Protein 5.9 g/dl (6.3-8.2); eGFR > 60.00
== END ==
LOC: OLABWHC 11:03
PROVIDERS: ATTENDING PHYSICIAN Family Medicine
DX: S72.142D Displaced intertrochanteric fracture of left femur, subsequent encounter for closed fracture with routine healing (principal); I10 Essential (primary) hypertension; E87.1 Hypo-osmolality and hyponatremia
CPT/HCPCS: 36415; 80053; 83735; 85027

== ENCOUNTER → 2025-01-25 10:12 | Outpatient (REF) | payer OTHER, MEDICARE, BC, SELFPAY ==
[2025-01-25 11:38] LABS: Blood Urea Nitrogen 18 mg/dl (7-17); Calcium 8.4 mg/dl (8.4-10.2); Carbon Dioxide 27 mmol/L (22-30); Chloride 103 mmol/L (98-107); Glucose 85 mg/dl (70-99); Potassium 4.3 mmol/L (3.5-5.1); Sodium 131 mmol/L (135-145); eGFR > 60.00
== END ==
LOC: OLABWHC 10:12
PROVIDERS: ATTENDING PHYSICIAN Family Medicine
DX: D64.9 Anemia, unspecified (principal); I10 Essential (primary) hypertension
CPT/HCPCS: 36415; 80048

== ENCOUNTER 2025-02-08 18:23 | Inpatient (IN) | payer MEDICARE, BC, SELFPAY ==
[2025-02-08] VITALS (13 sets, daily range): BP systolic 105–137; BP diastolic 46–106; BMI 24.5
--- NOTE | 2025-02-08 16:36 | ED.GENMED ---
History of Present Illness
<Anson Ornelas Jr., PA-C - Last Filed: 02/08/25 16:58>
General
Chief Complaint: Abnormal Lab Value
Source: patient, ambulance crew and alf
Exam Limitations: dementia
Time Seen by Provider: 02/08/25 16:06
Nursing documentation reviewed up to this point in time: agreed with
History of Present Illness
History of Present Illness:
84-year-old female past medical history of dementia presenting with concerns of anemia found as an outpatient. Denies any symptoms at this time. Patient is alert to place and person.
Past History
<Anson Ornelas Jr., PA-C - Last Filed: 02/08/25 16:58>
Past History
ED Past Medical History: Other (Osteoporosis); Negative CAD, HTN or Hypercholesterolemia
Social History
Tobacco: Non-smoker
Alcohol: Daily (1 class of wine)
Drug: None
Personal:
Living: with family
Review of Systems
<Anson Ornelas Jr., PA-C - Last Filed: 02/08/25 16:58>
Review of Systems
Allergies reviewed?: Yes
Unable to obtain full review of systems at this time due to: dementia
All Other Systems: ROS reviewed and negative except as documented in HPI and ROS
Phy Exam
<Anson Ornelas Jr., PA-C - Last Filed: 02/08/25 16:58>
Physical Exam
Physical Exam:
GENERAL: Alert , in no apparent distress
EYE: pupils equal and reactive
NECK: Supple, no significant adenopathy.
ENT: o/p clr, mmm.
CARDIAC: Regular rate and rhythm .
LUNGS: Clear breath sounds bilaterally, no acute respiratory distress, no wheezes/rales/rhonchi
ABDOMEN: Soft, without focal tenderness, no r/g, no cvat
Rectal: Dark brown stool guaiac positive
NEUROLOGICAL: Alert and oriented, no focal neuro deficits
SKIN: Warm and dry, skin intact.
MUSCULOSKELETAL: No edema, well perfused.
PSYCH: Normal and appropriate interaction.
Course
<Anson Ornelas Jr., PA-C - Last Filed: 02/08/25 16:58>
Orders/Labs/Results
Orders:
Orders
02/08/25 16:08
Electrocardiogram (*1) Urgent
Reason for Study: Other
Other Reason for Exam: low hgb
EKG- Treatment ONCE
02/08/25 16:10
Type+Screen Urgent
Complete Blood Count/With Diff Urgent
Comprehensive Metabolic Panel Urgent
02/08/25 16:55
* Blood Bank Products Urgent
Blood Bank Products: *Packed RBC Leuko (PRBC's
Quantity: 1
Transfuse Today: Yes
Reason: Anemia
02/08/25 16:58
Pantoprazole [Protonix IV] 80 mg IV NOW STA
02/08/25 17:03
Sterile Water [Sterile Water For Injection] 20 ml .ROUTE .STK-MED ONE
02/08/25 17:43
Admit/Transfer Patient As Directed
Co-Sign Provider:
Level of Care: Inpatient admission
Assign to:: IMU- Intermediate Care
Physician / Group: Hospitalist
Diagnosis: GI bleed
Reason for Hospitalization: GI bleed
Expected length of stay greater than two midnights?: Yes
ELOS- Estimated Length of Stay in days: 2
I certify the patient meets the requirements for IP care: Yes
PRN Pain Medication Management As Directed
May give lesser potent ordered pain med per pt: Yes
preference::
Protocol:: Medication orders for pain may be administered in a
manner that supports deferring to patient preference
when the pt is:
- Requesting an ordered lesser potent pain medication.
Least to most potent pain medications are defined
as: acetaminophen < NSAID < tramadol < opioids
(morphine, oxycodone, hydromorphone).
- Requesting a lesser dose of the same medication IF
ORDERED.
- Requesting a less intrusive route of administration
if both routes are prescribed by the provider (PO <
IV).
02/08/25 17:47
Code Status As Directed
Resuscitation Status: Do not resuscitate
Based on pt advanced directive or healthcare POA form: Yes
02/08/25 17:48
DNR Bracelet Application ONCE
Abnormal Lab Results
02/08/25
16:10
RBC 2.33 L 10^6/uL
(4.20-5.40)
Hgb 6.5 L* g/dL
(12.0-16.0)
Hct 21.4 L %
(37.0-47.0)
MCHC 30.4 L g/dL
(33.0-37.0)
RDW 18.2 H %
(11.5-14.5)
Plt Count 460 H 10^3/uL
(130-400)
Abs Immat Gran (auto) 0.3 H 10^3/uL
(0-0.05)
Absolute Monos (auto) 0.9 H 10^3/uL
(0.1-0.6)
Immature Gran % 3.0 H %
(0-0.5)
Lymphocytes % 15.1 L %
(20.5-51.1)
Monocytes % 9.7 H %
(1.7-9.3)
BUN 25 H mg/dl
(7-17)
Glucose 104 H mg/dl
(70-99)
Alkaline Phosphatase 140 H U/L
(38-126)
Total Protein 5.9 L g/dl
(6.3-8.2)
Albumin 3.4 L g/dl
(3.5-5.0)
Crossmatch IS Only See Detail
02/08/25 16:10
02/08/25 16:10
Vital Signs
Initial and Last Documented VS:
Initial Vital Signs
Pulse Resp
63 18
02/08/25 16:04 02/08/25 16:04
Last Documented Vital Signs
Temp Pulse Resp BP Pulse Ox
98.7 F 65 17 112/49 98
02/08/25 17:14 02/08/25 18:00 02/08/25 18:00 02/08/25 17:51 02/08/25 18:00
<José Luis Rutherford, DO - Last Filed: 02/08/25 18:06>
Orders/Labs/Results
Orders:
Orders
02/08/25 16:08
Electrocardiogram (*1) Urgent
Reason for Study: Other
Other Reason for Exam: low hgb
EKG- Treatment ONCE
02/08/25 16:10
Type+Screen Urgent
Complete Blood Count/With Diff Urgent
Comprehensive Metabolic Panel Urgent
02/08/25 16:55
* Blood Bank Products Urgent
Blood Bank Products: *Packed RBC Leuko (PRBC's
Quantity: 1
Transfuse Today: Yes
Reason: Anemia
02/08/25 16:58
Pantoprazole [Protonix IV] 80 mg IV NOW STA
02/08/25 17:03
Sterile Water [Sterile Water For Injection] 20 ml .ROUTE .STK-MED ONE
02/08/25 17:43
Admit/Transfer Patient As Directed
Co-Sign Provider:
Level of Care: Inpatient admission
Assign to:: IMU- Intermediate Care
Physician / Group: Hospitalist
Diagnosis: GI bleed
Reason for Hospitalization: GI bleed
Expected length of stay greater than two midnights?: Yes
ELOS- Estimated Length of Stay in days: 2
I certify the patient meets the requirements for IP care: Yes
PRN Pain Medication Management As Directed
May give lesser potent ordered pain med per pt: Yes
preference::
Protocol:: Medication orders for pain may be administered in a
manner that supports deferring to patient preference
when the pt is:
- Requesting an ordered lesser potent pain medication.
Least to most potent pain medications are defined
as: acetaminophen < NSAID < tramadol < opioids
(morphine, oxycodone, hydromorphone).
- Requesting a lesser dose of the same medication IF
ORDERED.
- Requesting a less intrusive route of administration
if both routes are prescribed by the provider (PO <
IV).
02/08/25 17:47
Code Status As Directed
Resuscitation Status: Do not resuscitate
Based on pt advanced directive or healthcare POA form: Yes
02/08/25 17:48
DNR Bracelet Application ONCE
Abnormal Lab Results
02/08/25
16:10
RBC 2.33 L 10^6/uL
(4.20-5.40)
Hgb 6.5 L* g/dL
(12.0-16.0)
Hct 21.4 L %
(37.0-47.0)
MCHC 30.4 L g/dL
(33.0-37.0)
RDW 18.2 H %
(11.5-14.5)
Plt Count 460 H 10^3/uL
(130-400)
Abs Immat Gran (auto) 0.3 H 10^3/uL
(0-0.05)
Absolute Monos (auto) 0.9 H 10^3/uL
(0.1-0.6)
Immature Gran % 3.0 H %
(0-0.5)
Lymphocytes % 15.1 L %
(20.5-51.1)
Monocytes % 9.7 H %
(1.7-9.3)
BUN 25 H mg/dl
(7-17)
Glucose 104 H mg/dl
(70-99)
Alkaline Phosphatase 140 H U/L
(38-126)
Total Protein 5.9 L g/dl
(6.3-8.2)
Albumin 3.4 L g/dl
(3.5-5.0)
Crossmatch IS Only See Detail
02/08/25 16:10
02/08/25 16:10
Vital Signs
Initial and Last Documented VS:
Initial Vital Signs
Pulse Resp
63 18
02/08/25 16:04 02/08/25 16:04
Last Documented Vital Signs
Temp Pulse Resp BP Pulse Ox
98.7 F 65 17 112/49 98
02/08/25 17:14 02/08/25 18:00 02/08/25 18:00 02/08/25 17:51 02/08/25 18:00
<Anson Ornelas Jr., PA-C - Last Filed: 02/08/25 16:58>
MDM/Problems Addressed
MDM/Problems Addressed:
84-year-old female presenting to the emergency department today with concerns of low hemoglobin as an outpatient at nursing facility. She denies any specific symptoms. She has not noticed any bowel changes. Here vital signs are normal stool is
dark brown and guaiac positive. She is not on any blood thinners. Unit of blood ordered admitted for further monitoring and treatment.
<Anson Ornelas Jr., PA-C - Last Filed: 02/08/25 16:58>
*Pulse Oximetry
Patient hypoxic: no (98)
*Critical Care Note
Total Time (30-74mins, 75-104mins- exclusive of procedures): Not Applicable
<José Luis Rutherford DO - Last Filed: 02/08/25 18:06>
*Critical Care Note
Total Time (30-74mins, 75-104mins- exclusive of procedures): 30
comment:
Critical care statement: A total of 30 minutes of critical care time was provided for this patient. This includes management of unstable vital signs, evaluation of the patient at bedside, reviewing the patient's pertinent medical records, discussion
with consultants, review of old EKGs and review of pertinent medical records. This time with separate from time utilized to perform the aforementioned documented procedures
ED Attending Note
<Anson Ornelas Jr., PA-C - Last Filed: 02/08/25 16:58>
-
Portions of this chart may have been created with voice recognition software.� Occasional wrong word or��sound alike� substitutions may have occurred due to the inherent limitations of voice recognition software.
<DO Tylor Gonzalez Last Filed: 02/08/25 18:06>
ED Attending Note
Patient seen and examined by attending physician: Yes
ED Attending Note:
I reviewed and agree with history treatment plan by Anson Ornelas Jr., PA-C. My exam revealed 84-year-old female no acute distress, pale skin, pale oral mucosa abdomen exam benign. Stool guaiac positive, patient anemic and will get 1 unit
packed red blood cells, admit to hospitalist for further workup of anemia and GI bleed.
Discharge Plan
Departure
Patient Disposition: Admit
Date of Disposition: 02/08/25
Time of Disposition: 16:57
Admit to: Telemetry
Admit to doctor: Izabela
Presentation/result/management discussed w/ accepting MD/DO: Hospitalist
Patient with high blood pressure during this ER visit?: No
Condition: Good
Covid-19: Not Applicable
Discharge Problem:
Anemia, GI bleed
Prescriptions:
No Action
alendronate [Fosamax] 70 mg Tablet
70 mg PO DYKES
omega-3 fatty acids-fish oil 684-1,200 mg Capsule,Delayed Release(Dr/Ec)
1 cap PO DAILY Qty: 0
nifedipine 30 mg Tablet Extended Release
30 mg PO DAILY 30 Days Qty: 30 0RF
ascorbic acid (vitamin C) [Vitamin C] 1,000 mg Tablet
2,000 mg PO QPM
lidocaine 4 % Adhesive Patch,Medicated
1 patch TOPICAL DAILYPRN PRN (Reason: LOWER BACK PAIN)
escitalopram oxalate [Lexapro] 10 mg Tablet
10 mg PO DAILY
cholecalciferol (vitamin D3) [Vitamin D3] 25 mcg (1,000 unit) Tablet
25 mcg PO QPM
Refresh Optive 0.5-0.9 % Drops
1 drp BOTH EYES BID
cranberry extract [Ellura] 200 mg Capsule
200 mg PO QPM
omega 1-mht-hog-fish oil [Fish Oil] 1,000 (120-180) mg Capsule
1 cap PO DAILY
d-mannose 500 mg Capsule
500 mg PO QPM
ferrous sulfate 325 mg (65 mg iron) tablet
325 mg PO Q OTHER DAY Qty: 30 0RF
sennosides [Mary-arleen] 8.6 mg Tablet
17.2 mg PO BID Qty: 60 0RF
acetaminophen 325 mg Tablet
650 mg PO Q4HWA Qty: 100 0RF
aspirin 325 mg Tablet
325 mg PO DAILY Qty: 28 0RF
docusate sodium 100 mg Capsule
100 mg PO BID Qty: 60 0RF
Interventions
Interventions:
*Risk Screen - Suicide Last Done: 02/08/25 16:00
*General Assessment Last Done: 02/08/25 16:00
*Neglect/Abuse Screening Last Done: 02/08/25 16:00
*ED- Fall Risk Assessment Last Done: 02/08/25 16:00
*ED COVID-19 Vaccine History Last Done: 02/08/25 16:00
*ED Influenza Vaccine History Last Done: 02/08/25 16:00
Discharge Date and Time
Print Language: TRISTANIAN
[2025-02-08 16:48] LABS: Hematocrit 21.4 % (37.0-47.0); Hemoglobin 6.5 g/dL (12.0-16.0); Mean Corp Hgb Conc. 30.4 g/dL (33.0-37.0); Mean Corpuscular Volume 91.8 fL (81.0-99.0); Nucleated Red Blood Cells % 0 %; Platelet Count 460 10^3/uL (130-400); Red Cell Dist. Width 18.2 % (11.5-14.5)
[2025-02-08 16:49] LABS: ALT (SGPT) 15 U/L (0-35); AST (SGOT) 18 U/L (14-36); Albumin 3.4 g/dl (3.5-5.0); Alkaline Phosphatase 140 U/L (38-126); Blood Urea Nitrogen 25 mg/dl (7-17); Calcium 8.4 mg/dl (8.4-10.2); Carbon Dioxide 25 mmol/L (22-30); Chloride 103 mmol/L (98-107); Estimated Creatinine Clearance 36 ml/min; Glucose 104 mg/dl (70-99); Potassium 4.4 mmol/L (3.5-5.1); Sodium 136 mmol/L (135-145); Total Protein 5.9 g/dl (6.3-8.2); eGFR > 60.00
[2025-02-08] MEDS: PROTONIX IV 80 MG IV (17:06)
--- NOTE | 2025-02-08 17:07 | HPS.HSE ---
Addendum entered and electronically signed by Serenity Gurrola MD 02/08/25 19:41:
This is an addendum to H&P written by Demario Aguilar on 02/08/25. �Patient seen and examined independently with resident.
84-year-old female past medical history of dementia, hypertension, steoporosis, compression fractures, femur fracture last month status post blood transfusion, chronic ambulatory dysfunction uses walker, mild aortic stenosis, chronic hyponatremia
presenting with anemia on outpatient labs. �No symptoms.
Vital signs unremarkable. �Pale on examination. �Rectal examination showed dark brown heme positive stool.
Labs show hemoglobin of 6.5 from 8.1 on 01/19.
Patient with asymptomatic acute blood loss anemia secondary to upper GI bleeding. �2 units blood transfusion. �Clear liquid diet, n.p.o. past midnight. �Protonix 40 IV twice daily. �Check iron studies. �GI consulted. �Hold aspirin. �Hold nifedipine.
Original Note:
Family Physician
-
Family Physician: Fidel Baldwin MD
Chief Complaint
-
Abnormal labs
History of Present Illness
84-year-old female with history of hypertension, osteoporosis, mild aortic stenosis, chronic hyponatremia, hypercholesterolemia, dementia, chronic ambulatory dysfunction presents to the ER with concerns for low hemoglobin as an outpatient at nursing
facility. Patient has history of dementia, she is conversant and pleasant, but not a reliable historian. Patient does not report any blood in the stools, melena, hematemesis. She is not on any blood thinners, does not use NSAIDs on a chronic
basis.
Patient had a recent hospital admission for left fracture femur s/p intramedullary nail, she required 1 PRBC for postoperative anemia before discharge.
ED course�Vital stable at presentation, hemoglobin�6.5, hematocrit�21.4. Sodium�136, BUN/creatinine�18/0.6. Glucose 104. Calcium�8.3, ALP�140. EKG with NSR.
Medical History
Past Medical History
Past Medical History: Reports Dementia and Other ( Chronic hyponatremia, chronic anemia, osteoporosis, generalized anxiety disorder)
Past Surgical History: Reports None
Social History
Unable to obtain full social history at this time due to: Dementia
Tobacco: Non-smoker
Alcohol: None
Drug: None
Personal: Single
Living: Half-Way
Family History
Family History: Not pertinent
Allergies / Home Medications
Allergies reflects when Allergies were last updated in [facility].
Home Medications with original date entered in [facility]
Allergy/Medication List:
Allergies
Allergy/AdvReac Type Severity Reaction Status Date / Time
No Known Allergies Allergy Verified 02/08/25 16:05
Home Medications
alendronate 70 mg tablet (Fosamax) 70 mg PO DYKES osteoporosis 02/22/23
omega-3 fatty acids-fish oil 684 mg-1,200 mg capsule,delayed release 1 cap PO DAILY Supplement ##0 02/22/23
nifedipine 30 mg tablet,extended release 30 mg PO DAILY 30 days #30 tabs 02/28/23
ascorbic acid (vitamin C) 1,000 mg tablet (Vitamin C) 2,000 mg PO QPM 01/13/25
carboxymethylcellulose 0.5 %-glycerin 0.9 % eye drops (Refresh Optive) 1 drp BOTH EYES BID 01/13/25
cholecalciferol (vitamin D3) 25 mcg (1,000 unit) tablet (Vitamin D3) 25 mcg PO QPM 01/13/25
cranberry extract 200 mg capsule (Ellura) 200 mg PO QPM 01/13/25
d-mannose 500 mg capsule 500 mg PO QPM 01/13/25
escitalopram oxalate 10 mg tablet (Lexapro) 10 mg PO DAILY 01/13/25
lidocaine 4 % topical patch 1 patch topical DAILYPRN PRN LOWER BACK PAIN 01/13/25
omega 8-ysk-ehz-fish oil 1,000 mg (120 mg-180 mg) capsule (Fish Oil) 1 cap PO DAILY 01/13/25
acetaminophen 325 mg tablet 650 mg (2 x 325 mg) PO Q4HWA #100 tabs 01/15/25
aspirin 325 mg tablet 325 mg PO DAILY #28 tabs 01/15/25
docusate sodium 100 mg capsule 100 mg PO BID #60 caps 01/15/25
ferrous sulfate 325 mg (65 mg iron) tablet 325 mg PO Q OTHER DAY #30 tabs 01/15/25
sennosides 8.6 mg tablet (Mary-arleen) 17.2 mg (2 x 8.6 mg) PO BID #60 tabs 01/15/25
Review of Systems
-
Unable to obtain full review of systems at this time due to: Dementia
Physical Exam
Vital Signs
Vital Signs
Temp Pulse Resp BP
98.7 F 63 18 129/49
02/08/25 16:07 02/08/25 16:04 02/08/25 16:04 02/08/25 16:07
Physical Exam
General: No Apparent Distress, Appears Chronically Ill and Other (Appears pale)
HEENT: NormoCephalic and Atraumatic
Respiratory: Clear
Cardiac: S1/S2 and Regular Rhythm
GI: Soft, Non Tender, Non Distended and Normal Bowel Sounds
Skin: Warm and Dry
Neuro: Awake, Alert, Oriented and AO x 3
Psych: Calm
Laboratory Results
-
02/08/25 16:10
02/08/25 16:10
Laboratory Results
Total Bilirubin 0.2 mg/dl (0.2-1.3) 02/08/25 16:10
AST 18 U/L (14-36) 02/08/25 16:10
ALT 15 U/L (0-35) 02/08/25 16:10
Alkaline Phosphatase 140 U/L (38-126) H 02/08/25 16:10
Impression/Plan
-
IMPRESSION:
84-year-old female with history of hypertension, osteoporosis, mild aortic stenosis, chronic hyponatremia, hypercholesterolemia, dementia, chronic ambulatory dysfunction presents to the ER with concerns for low hemoglobin as an outpatient at nursing
facility.
PLAN:
#Acute on chronic anemia
Hemoglobin at 6.5 at admission
Stool Hemoccult positive
Etiology multifactorial�likely from upper GI bleed versus lower GI bleed versus acute blood loss anemia vs anemia of chronic disease.
Patient has history of recent admission for left hip fracture s/p intramedullary nail fixation, requiring 1 PRBC during admission.
Will will do anemia workup
Check iron studies
Check B12, folate
Check LDH, haptoglobin
Check reticulocyte count
Will transfuse 2 PRBC
Type and crossmatch already ordered by ER
Will start IV Protonix 40 twice daily
GI consulted
Clear liquids for now
N.p.o. past midnight
Monitor CBC
#Essential hypertension
Will hold nifedipine
#Osteoporosis
Hold off on alendronate for now
Will restart pending GI eval
#Generalized anxiety disorder
Continue escitalopram
#Senile dementia
Monitor for episodes of agitation
DVT prophylaxis�SCDs
Diet�clear liquids, n.p.o. past midnight
DNR�as per SNF records.
[2025-02-08] MEDS: REFRESH EYE DROPS (PF) 1 DROPS BOTH EYES (20:42)
[2025-02-08] MEDS: VITAMIN D3 (cholecalciferol) 25 MCG PO (20:42)
[2025-02-08] MEDS: TYLENOL 650 MG PO (20:42)
[2025-02-08] MEDS: COLACE 100 MG PO (20:42)
[2025-02-08] MEDS: SENOKOT 17.2 MG PO (20:42)
[2025-02-08 22:43] LABS: Reticulocyte Count 7.0 % (0.4-2.8)
[2025-02-09] VITALS (17 sets, daily range): BP systolic 125–183; BP diastolic 45–84
[2025-02-09] MEDS: TYLENOL PO ×3 (00:45→23:57)
--- NOTE | 2025-02-09 02:12 | PTCARENOTE ---
pt arrived from ED at 20:00. aaox1-2, confused/forgetful. NSR on monitor. Murmur noted. Lungs CTA on RA. Stress incont of bladder. 2 approximated, healed incisions on L hip from recent L hip surgery. R forearm IV. 1 unit PRBC given in ED, 1 unit
given here. VSS. Pt resting comfortably in bed at this time. Care ongoing.
[2025-02-09 07:08] LABS: Hematocrit 33.2 % (37.0-47.0); Hemoglobin 10.6 g/dL (12.0-16.0); Mean Corp Hgb Conc. 31.9 g/dL (33.0-37.0); Mean Corpuscular Volume 88.3 fL (81.0-99.0); Nucleated Red Blood Cells % 0 %; Platelet Count 442 10^3/uL (130-400); Red Cell Dist. Width 17.2 % (11.5-14.5)
[2025-02-09 07:17] LABS: ALT (SGPT) 15 U/L (0-35); AST (SGOT) 21 U/L (14-36); Albumin 3.6 g/dl (3.5-5.0); Alkaline Phosphatase 131 U/L (38-126); Blood Urea Nitrogen 18 mg/dl (7-17); Calcium 8.9 mg/dl (8.4-10.2); Carbon Dioxide 27 mmol/L (22-30); Chloride 102 mmol/L (98-107); Estimated Creatinine Clearance 41 ml/min; Glucose 91 mg/dl (70-99); Iron 49 ug/dl (37-170); LDH 283 U/L (120-246); Potassium 4.5 mmol/L (3.5-5.1); Sodium 133 mmol/L (135-145); Total Iron Binding Capacity 345 ug/dl (265-497); Total Protein 6.5 g/dl (6.3-8.2); eGFR > 60.00
[2025-02-09 07:38] LABS: TSH 1.64 uIU/ml (0.47-4.68)
[2025-02-09 07:42] LABS: Ferritin 139.0 ng/ml (11.1-264.0)
[2025-02-09] MEDS: COLACE 100 MG PO ×2 (08:05→19:49)
[2025-02-09] MEDS: FEOSOL 325 MG PO (08:06)
[2025-02-09] MEDS: NSS (PRESERVATIVE FREE) 10 ML IV ×2 (08:06→19:50)
[2025-02-09] MEDS: LEXAPRO 10 MG PO (08:06)
[2025-02-09] MEDS: PROTONIX IV 40 MG IV ×2 (08:11→19:50)
[2025-02-09] MEDS: SENOKOT 17.2 MG PO ×2 (08:12→19:49)
[2025-02-09] MEDS: REFRESH EYE DROPS (PF) 1 DROPS BOTH EYES ×2 (08:12→19:50)
[2025-02-09] MEDS: TYLENOL 650 MG PO ×4 (08:12→19:50)
[2025-02-09 08:14] LABS: Folate 7.2 ng/ml (2.76-20); Vitamin B12 602 pg/ml (239-931)
--- NOTE | 2025-02-09 11:53 | W.PN.HOSP.TC ---
Addendum entered and electronically signed by Jessica Manuel MD 02/09/25 20:18:
I saw and evaluated the patient independently. I reviewed and discussed the resident�s note and agree with findings and plan as documented by Dr. Lucas.
GENERAL: well developed, well nourished, female in no apparent distress
HEENT: NC/AT
HEART: regular rate and rhythm, +S1, +S2, YESSY, bradycardic
LUNGS : clear to auscultation bilaterally
ABDOM: soft, nontender, nondistended, + bowel sounds
EXT: no cyanosis, clubbing, or edema
NEUROLOGIC: apparent dementia
Acute on chronic anemia--likely etiologies are blood loss from PUD/upper GI bleed/gastritis from asa use for DVT prophylaxis vs post op anemia from long bone fracture and IVF dilution from hip fracture and OR repair (had 1 unit pRBC at that
admission)--has heme positive stool--HGB 6.5 with improvement to 10.6 after 2 units pRBC
Patient has history of recent admission for left hip fracture s/p intramedullary nail fixation, requiring 1 PRBC during admission--no signs of iron deficiency--B12 and folate WNL--do not believe hemolyzing--LDH 283--retic count
increased--haptoglobin pending--apprec GI--may need EGD if HGB drops again--clear liquids for now
Sinus Bradycardia with marked sinus arrhythmia--apprec Cards--check ECHO
Essential hypertension--Will hold Nifedipine
Osteoporosis--Hold off on Alendronate-- Will restart pending GI consult
General Anxiety Disorder--Continue Escitalopram
Senile Dementia--Monitor for episodes of agitation
DVT Proph--SCD's
Code status--DNR: As per SNF records
Original Note:
Today's Communication/Plan
-
As per cards, patient is asymptomatic -- monitor on telemetry --repeat Echo
As per GI, patient does have anemia of chronic disease -- also have heme positive stool -- Is on Fosomax and Aspirin, both of which could cause upper GI ulceration-- Start PPI--Monitor Hgb--Put on clears for now--Considering upper endoscopy to rule
out PUD.
Awaiting PT consult for recent leg fracture surgery
Continue to monitor CBC
Assessment / Plan
Assessment / Plan
Assessment: 84 year old female with PMH of dementia, hypertension, osteoporosis, compression fractures, femur fracture last month s/p blood transfusion, chronic ambulatory dysfunction (uses walker), mild aortic stenosis, presenting with anemia on
outpatient labs. No sxs. Vitals unremarkable. Rectal exam showed dark brown heme positive stool. Patient with asymptomatic acute blood loss anemia secondary to upper GI bleeding. 2 Units of PRBC for transfusion. Continue clear liquid diet and then
after midnight.
#Acute on chronic anemia
Hemoglobin at 6.5 at admission
Stool Hemoccult positive
Etiology multifactorial�likely from upper GI bleed versus lower GI bleed versus acute blood loss anemia vs anemia of chronic disease.
Patient has history of recent admission for left hip fracture s/p intramedullary nail fixation, requiring 1 PRBC during admission.
Will will do anemia workup
Check iron studies
Check B12, folate
Check LDH, haptoglobin
Check reticulocyte count
Will transfuse 2 PRBC
Type and crossmatch already ordered by ER
Will start IV Protonix 40 twice daily
GI consulted
NPO now
Monitor CBC
#Sinus Bradycardia with marked sinus arrhythmia
Consult Cardio
#Essential hypertension
Will hold Nifedipine
#Osteoporosis
Hold off on Alendronate
Will restart pending GI consult
#General Anxiety Disorder
Continue Escitalopram
#Senile Dementia
Monitor for episodes of agitation
DVT PPx:SCD's
Diet: NPO
DNR:As per SNF records
Anticipated Discharge: > 48 hours
Subjective/Interval History
-
Date of Service: February 09, 2025
84-year-old female presented to the ED on 01/08/2025 with concerns for low hemoglobin (6.5) as an OP at SNF.
Patient has history of dementia, while she is conversant, she is not a reliable historian.
Denies any blood in the stools, melena, hematemesis.
Not on any blood thinners, does not use NSAIDs regularly.
Recent hospital admission for left fracture of femur s/p intramedullary nail, required 1 PRBC for postop anemia before discharge.
As of 02/09/2025, no overnight events were reported for this patient. Her nurse did say that while she is asleep her heart rate drops into the 30s, and when she wakes up comes back to 40�50 range.
Patient denies any nausea, vomiting, diarrhea, constipation, aches, fevers, chills.
During pre rounds patient was going in and out of sinus bradycardia.
Objective Data
-
Labs:
Laboratory Results
02/09/25
06:30
WBC 8.9
Hgb 10.6 L D
Hct 33.2 L
Plt Count 442 H
Sodium 133 L
Potassium 4.5
Chloride 102
Carbon Dioxide 27
BUN 18 H
Creatinine 0.7
Glucose 91
Calcium 8.9
Total Bilirubin 0.7
AST 21
ALT 15
Alkaline Phosphatase 131 H
Vital Signs:
Vital Signs
Temp Pulse Resp BP Pulse Ox
98.2 F 37 14 146/52 97
02/09/25 08:41 02/09/25 09:14 02/09/25 09:14 02/09/25 09:14 02/09/25 08:00
I&O
02/08/25 02/09/25 02/10/25
06:59 06:59 06:59
Intake Total 500 / 500
Balance 500 / 500
EKG (02/08/25): NSR
EKG (02/09/25): Sinus Bradycardia with marked sinus arrhythmia
Review of Systems
-
Unable to obtain full review of systems at this time due to: Dementia
History Source: Patient and Records
All other systems: Reviewed and negative
Physical Exam
-
General: No Apparent Distress, Comfortable and Appears Chronically Ill
HEENT: Normocephalic and Atraumatic
Respiratory: Clear to Auscultation
Cardiac: Regular Rhythm, S1/S2 and Murmur
Breast: Deferred by me
GI: Soft, Nontender, Nondistended and Normal Bowel Sounds
Rectal: Red and Hem Positive
Musculoskeletal: No Clubbing, No Cyanosis and No Edema
Neuro: Awake and Alert
Psych: Calm and Apparent Dementia
Data Reviewed
-
Medical Tests (Nuc Med, Echo etc): Report Reviewed by me and Discussed with Physician
Labs: Labs Reviewed by me and Discussed with Physician
--- NOTE | 2025-02-09 13:38 | CON.CAR ---
Addendum entered and electronically signed by Yinka Pappas MD 02/09/25 16:13:
I saw and examined the patient independently, and performed majority of MDM.
The resident's note was reviewed and I agree with the note with changes/additions below.
Comment: 84 yo female, [place] resident, dementia, mild , HTN is admitted with acute anemia on labs. We are consulted for bradycardia. She offers no cardiac complaints. Exam with RRR, II/ systolic murmur at RUSB, no edema. Tele: sinus rhythm, sinus
bradycardia, sinus arrhythmia, PAC's. EKG: sinus brad with sinus arrhythmia.
Bradycardia. Sinus with periods of sinus arrhythmia and also PAC's. Asymptomatic. Check echo. Trend tele.
Mild . Echo.
Original Note:
Consultation
Consultation Request
Date/Time Consultation Requested: 02/09/2025; 10:46
Date/Time Consultation Performed: 02/09/2025; 13:39
Requesting Provider: Dr. Rajan Lucas
Performing Provider: Dr. Yinka Pappas; Dr. Pato White
Reason for Consultation: bradycardia
Medical History
-
Chief Complaint: bradycardia
History of Present Illness:
84 yo F PMH HTN, osteoporosis, mild aortic stenosis, chronic hyponatremia, dementia, chronic ambulatory dysfunction p/w low hemoglobin to 6.6.
She is able to converse but is not a reliable historian. While being worked up for a GI bleed, she was found to be bradycardic to the 30s, prompting a consult to cardiology.
She is coming from [facility]. She was recently admitted (01/2025) for a left hip fracture s/p intramedullary nail fixation.
Her initial VS were HR 65, BP 112/49. EKG showed on admission normal sinus rhythm with HR in 60s.
During my interview, she is conversant and AO to only first name and hospital, not last name, city, or date. However, she denies lightheadedness, dizziness, chest pain, dyspnea, palpitations. She denies headache, abdominal owen, or focal neurologic
deficits.
Telemetry review showed an episode of bradycardia to the 30s.
Past Medical History
Past Medical History: HTN, Valvular Disease and Other (dementia, ambulatory dysfunction, osteoporosis, chronic hyponatremia)
Social History
Tobacco: Non-Smoker
Alcohol: None
Drug: None
Living: [facility]
Allergies / Home Medications
Allergy/AdvReac Type Severity Reaction Status Date / Time
No Known Allergies Allergy Verified 02/08/25 16:05
�Medication �Instructions �Recorded �Confirmed �Type
alendronate 70 mg tablet (Fosamax) 70 mg PO DYKES osteoporosis 02/22/23 01/13/25 History
omega-3 fatty acids-fish oil 684 1 cap PO DAILY Supplement ##0 02/22/23 01/13/25 History
mg-1,200 mg capsule,delayed release
nifedipine 30 mg tablet,extended 30 mg PO DAILY 30 days #30 tabs 02/28/23 01/13/25 Rx
release
ascorbic acid (vitamin C) 1,000 mg 2,000 mg PO QPM 01/13/25 01/13/25 History
tablet (Vitamin C)
carboxymethylcellulose 0.5 1 drp BOTH EYES BID 01/13/25 01/13/25 History
%-glycerin 0.9 % eye drops
(Refresh Optive)
cholecalciferol (vitamin D3) 25 25 mcg PO QPM 01/13/25 01/13/25 History
mcg (1,000 unit) tablet (Vitamin
D3)
cranberry extract 200 mg capsule 200 mg PO QPM 01/13/25 01/13/25 History
(Ellura)
d-mannose 500 mg capsule 500 mg PO QPM 01/13/25 01/13/25 History
escitalopram oxalate 10 mg tablet 10 mg PO DAILY 01/13/25 01/13/25 History
(Lexapro)
lidocaine 4 % topical patch 1 patch topical DAILYPRN PRN LOWER 01/13/25 01/13/25 History
BACK PAIN
omega 8-etq-ple-fish oil 1,000 mg 1 cap PO DAILY 01/13/25 01/13/25 History
(120 mg-180 mg) capsule (Fish Oil)
acetaminophen 325 mg tablet 650 mg (2 x 325 mg) PO Q4HWA #100 01/15/25 Rx
tabs
aspirin 325 mg tablet 325 mg PO DAILY #28 tabs 01/15/25 Rx
docusate sodium 100 mg capsule 100 mg PO BID #60 caps 01/15/25 Rx
ferrous sulfate 325 mg (65 mg 325 mg PO Q OTHER DAY #30 tabs 01/15/25 Rx
iron) tablet
sennosides 8.6 mg tablet (Mary-arleen) 17.2 mg (2 x 8.6 mg) PO BID #60 01/15/25 Rx
tabs
Review of Systems
-
Constitutional: No Symptoms
EENT: No Symptoms
Respiratory: No Symptoms
Cardiac: No Symptoms
Abdomen/GI: No Symptoms
Musculoskeletal: No Symptoms
Neurological: No Symptoms
Physical Exam
Vital Signs
Temp Pulse Resp BP Pulse Ox
98.2 F 37 14 146/52 97
02/09/25 08:41 02/09/25 09:14 02/09/25 09:14 02/09/25 09:14 02/09/25 08:00
telemetry review shows sinus arrhythmia with PACs
Lab Results
02/09/25 06:30
02/09/25 06:30
TSH 1.64
EKG 02/09/2025
Vent. Rate : 46 BPM Atrial Rate : 46 BPM
P-R Int : 168 ms QRS Dur : 88 ms
QT Int : 440 ms P-R-T Axes : 25 47 74 degrees
QTcB Int : 385 ms
SINUS BRADYCARDIA WITH MARKED SINUS ARRHYTHMIA
MINIMAL VOLTAGE CRITERIA FOR LVH, MAY BE NORMAL VARIANT ( Joe product )
ANTEROSEPTAL INFARCT
EKG 02/08/2025
Vent. Rate : 61 BPM Atrial Rate : 61 BPM
P-R Int : 188 ms QRS Dur : 86 ms
QT Int : 428 ms P-R-T Axes : 81 40 80 degrees
QTcB Int : 430 ms
NORMAL SINUS RHYTHM
Poor R-wave progression consider anteroseptal infarct, lead placement, or
normal variant
Echocardiogram 11/29/2022
CONCLUSIONS
Normal left ventricular size and systolic function.
LV ejection fraction is 60-65%.
Mild aortic stenosis. Peak [id number] mmHg and mean gradient 11 mmHg
No prior study available for comparison.
Physical Exam
General: Comfortable
HEENT: Normocephalic
Respiratory: Clear
Cardiac: Regular Rhythm and Other (crescendo-decrescendo murmur loudest near erb's point)
GI: Soft, Non Tender and Non Distended
Genito-urinary: No Costovertebral Tender
Musculoskeletal: No Edema
Neuro: Awake, No Motor Deficits, Nonfocal/Grossly Intact and Other (AO only to first name, and place (not city, not last name, not year))
Psych: Calm
Impression / Plan
-
In summary, 84 yo F PMH HTN, osteoporosis, mild aortic stenosis, chronic hyponatremia, dementia, chronic ambulatory dysfunction p/w low hemoglobin to 6.6; now 10.1 (s/p 2 units pRBC) and found to be bradycardic to the 30s, prompting a cardiology
consult.
Bradycardia
- telemetry review shows sinus arrhythmia, sinus bradycardia with PACs
- etiologies: medication toxicity, ischemia, autonomic imbalance
- medication review does not reveal a medication (nifedipine? which is being held) clearly associated with bradycardia
- p-waves visible, pointing away from atrial fibrillation (on my read)
- EKG does not show signs of ischemia (pointing away from ACS), and she also denies any chest pain
- no evidence of 2nd/3rd degree heart block
- she denies any lightheadedness or dizziness (but is not a reliable historian), suggesting asymptomatic
- reassuringly, per chart documentation, she is hemodynamically stable (BP 130s/60s)
- could be sinus node dysfunction
- Possible that her bradycardic episode was when she was napping/sleeping? During my interview, the HR ranged in 50s on the monitor
Plan:
- asymptomatic
- monitor on telemetry
- repeat echocardiogram
- Recommendations are not final until discussed with Dr. Pappas, cardiology attg
HTN
- Primary team is holding nifedipine given GI bleed workup
- monitor BP
Aortic stenosis
- murmur is appreciable on physical exam
- repeat echocardiogram
--- NOTE | 2025-02-09 13:45 | CON.GI ---
Consultation
-
Date/Time Consultation Requested: 02/09/25 11am
Date/Time Consultation Performed: 02/09/25 1pm
Requesting Provider: Kaleb
Performing Provider: ho
Reason for Consultation: drop in hgb
Medical History
Chief Complaint / HPI
Chief Complaint: drop in hgb
History of Present Illness:
This patient is an 84-year-old woman with a history of dementia, hypertension and a recent femur fracture last month. She did receive 1 unit of blood after the her fracture last month. She was admitted after routine labs showed a drop in
hemoglobin. She does deny any dysphagia or abdominal pain or change in bowel habits. She is noted to have heme positive brown stool. Of note she does have dementia and is having a hard time remembering exactly the history. She does states she
lives with her . She does not believe she has had an endoscopy or colonoscopy.
Past Medical History
Past Medical History: Other (Dementia, chronic anemia, hypertension, femur fracture)
Past Surgical History: Other (Femur repair January 2025)
Social History
Tobacco: Non-Smoker
Living: With Family
Family History
Family History: Reviewed & Not Pertinent
Allergies / Home Medications
Allergy/AdvReac Type Severity Reaction Status Date / Time
No Known Allergies Allergy Verified 02/08/25 16:05
�Medication �Instructions �Recorded
alendronate 70 mg tablet (Fosamax) 70 mg PO DYKES osteoporosis 02/22/23
omega-3 fatty acids-fish oil 684 1 cap PO DAILY Supplement ##0 02/22/23
mg-1,200 mg capsule,delayed release
nifedipine 30 mg tablet,extended 30 mg PO DAILY 30 days #30 tabs 02/28/23
release
ascorbic acid (vitamin C) 1,000 mg 2,000 mg PO QPM 01/13/25
tablet (Vitamin C)
carboxymethylcellulose 0.5 1 drp BOTH EYES BID 01/13/25
%-glycerin 0.9 % eye drops
(Refresh Optive)
cholecalciferol (vitamin D3) 25 25 mcg PO QPM 01/13/25
mcg (1,000 unit) tablet (Vitamin
D3)
cranberry extract 200 mg capsule 200 mg PO QPM 01/13/25
(Ellura)
d-mannose 500 mg capsule 500 mg PO QPM 01/13/25
escitalopram oxalate 10 mg tablet 10 mg PO DAILY 01/13/25
(Lexapro)
lidocaine 4 % topical patch 1 patch topical DAILYPRN PRN LOWER 01/13/25
BACK PAIN
omega 4-ngu-ons-fish oil 1,000 mg 1 cap PO DAILY 01/13/25
(120 mg-180 mg) capsule (Fish Oil)
acetaminophen 325 mg tablet 650 mg (2 x 325 mg) PO Q4HWA #100 01/15/25
tabs
aspirin 325 mg tablet 325 mg PO DAILY #28 tabs 01/15/25
docusate sodium 100 mg capsule 100 mg PO BID #60 caps 01/15/25
ferrous sulfate 325 mg (65 mg 325 mg PO Q OTHER DAY #30 tabs 01/15/25
iron) tablet
sennosides 8.6 mg tablet (Mary-arleen) 17.2 mg (2 x 8.6 mg) PO BID #60 01/15/25
tabs
Review of Systems
-
All other systems: A 12 pt ROS was Negative except as stated above in HPI (limited hx due to dementia)
Vital Signs
Temp Pulse Resp BP Pulse Ox
98.2 F 59 15 131/67 96
02/09/25 08:41 02/09/25 12:00 02/09/25 12:00 02/09/25 12:00 02/09/25 12:00
Physical Exam
Exam
General: No Apparent Distress
Respiratory: Clear
Cardiac: S1/S2
GI: Soft, Non Tender and Non Distended
Skin: Warm
Psych: Calm
Results
WBC 8.9 10^3/uL (4.8-10.8) 02/09/25 06:30
Hgb 10.6 g/dL (12.0-16.0) L D 02/09/2530
Hct 33.2 % (37.0-47.0) L 02/09/25
MCV 88.3 fL (81.0-99.0) 02/09/25:30
Plt Count 442 10^3/uL (130-400) H 02/09/25:30
Absolute Neuts (auto) 6.3 10^3/uL (1.4-6.5) 02/09/25:30
Sodium 133 mmol/L (135-145) L 02/09/25
Potassium 4.5 mmol/L (3.5-5.1) 02/09/25
Chloride 102 mmol/L (98-107) 02/09/25:30
Carbon Dioxide 27 mmol/L (22-30) 02/09/25:30
BUN 18 mg/dl (7-17) H 02/09/25:30
Creatinine 0.7 mg/dL (0.6-1.0) 02/09/25:30
Calcium 8.9 mg/dl (8.4-10.2) 02/09/25:30
Total Bilirubin 0.7 mg/dl (0.2-1.3) 02/09/25:30
AST 21 U/L (14-36) 02/09/25:30
ALT 15 U/L (0-35) 02/09/25:30
Alkaline Phosphatase 131 U/L (38-126) H 02/09/25:30
Assessment / Plan
-
This patient is an 84-year-old woman with a history of hypertension and dementia with a recent femur fracture with repair. She does have chronic anemia and did have a drop in hemoglobin seen on routine exams. She did respond appropriately to 2
units of blood. For now would do the following:
1. She does have chronic anemia and her iron studies are consistent with anemia of chronic disease and her BUN hasn't significantly risen; however she does have heme positive stool. She is on Fosamax as well as aspirin which could both cause
upper GI ulceration. I would start a PPI.
2. I would monitor her hemoglobin.
3. I think it is reasonable to consider an upper endoscopy to rule out peptic ulcer disease. This will be determined by consent and her clinical course. She can have clears for now.
-
-
Thank you for consultation and allowing me to participate in the patient's care. Please call the soil conservation teacher GI physician during the after hours with any questions or concerns.
[2025-02-09] MEDS: VITAMIN C 2000 MG PO (16:41)
[2025-02-09] MEDS: VITAMIN D3 (cholecalciferol) 25 MCG PO (16:41)
--- NOTE | 2025-02-09 17:07 | CM ---
Patient was at [facility] and per [facility] family did not pay to hold bed. CM will send updated clinicals and liaison is checking on bed availability. Per liaison patient was participating with therapy at the facility. Patient was Alert x2/3, mod
assist of 1 for all ADL's. Patient in rolling walker with one assist and uses wheelchair for long distances. Patient daughter and son both visit and are involved. CM will continue to follow for discharge planning needs.
Plan: SNF pending medical treatment plan
[2025-02-10] VITALS (12 sets, daily range): BP systolic 104–187; BP diastolic 48–73
[2025-02-10] MEDS: APRESOLINE 5 MG IV (00:38)
--- NOTE | 2025-02-10 01:30 | PTCARENOTE ---
Pt BP 187/73. HEATING AND VENTILATING TENDER notified. Orders for IV hydralazine placed. 5mg hydralazine given. Repeat BP 160/68. Care ongoing.
[2025-02-10] MEDS: TYLENOL PO ×3 (02:59→17:46)
--- NOTE | 2025-02-10 03:03 | PTCARENOTE ---
Pt with large formed heme positive BM.
--- NOTE | 2025-02-10 04:41 | W.PN.UPDATE ---
Update Note
Progress Note Update
BP 187/73 HR 56 on repeat check. Patient without any new complaints, voiding without difficulty. Will order Hydralazine 5mg IVx1 BP 154/58 HR 68.
[2025-02-10 06:32] LABS: Hematocrit 32.4 % (37.0-47.0); Hemoglobin 10.6 g/dL (12.0-16.0); Mean Corp Hgb Conc. 32.7 g/dL (33.0-37.0); Mean Corpuscular Volume 88.8 fL (81.0-99.0); Nucleated Red Blood Cells % 0 %; Platelet Count 430 10^3/uL (130-400); Red Cell Dist. Width 16.7 % (11.5-14.5)
[2025-02-10 07:03] LABS: ALT (SGPT) 14 U/L (0-35); AST (SGOT) 21 U/L (14-36); Albumin 3.3 g/dl (3.5-5.0); Alkaline Phosphatase 139 U/L (38-126); Blood Urea Nitrogen 14 mg/dl (7-17); Calcium 8.6 mg/dl (8.4-10.2); Carbon Dioxide 24 mmol/L (22-30); Chloride 103 mmol/L (98-107); Estimated Creatinine Clearance 48 ml/min; Glucose 82 mg/dl (70-99); Magnesium 2.1 mg/dl (1.6-2.3); Potassium 4.2 mmol/L (3.5-5.1); Sodium 131 mmol/L (135-145); Total Protein 6.1 g/dl (6.3-8.2); eGFR > 60.00
[2025-02-10] MEDS: TYLENOL 650 MG PO ×2 (09:05→20:08)
[2025-02-10] MEDS: LEXAPRO 10 MG PO (09:05)
[2025-02-10] MEDS: REFRESH EYE DROPS (PF) 1 DROPS BOTH EYES ×2 (09:05→20:08)
[2025-02-10] MEDS: NORVASC 5 MG PO (09:05)
[2025-02-10] MEDS: SENOKOT 17.2 MG PO ×2 (09:06→20:08)
[2025-02-10] MEDS: PROTONIX IV 40 MG IV ×2 (09:06→20:07)
[2025-02-10] MEDS: NSS (PRESERVATIVE FREE) 10 ML IV ×2 (09:06→20:07)
[2025-02-10] MEDS: COLACE 100 MG PO ×2 (09:07→20:08)
--- NOTE | 2025-02-10 09:18 | W.PN.GI.CBS2 ---
Today's Communication / Plan
-
PPI once a day
Assessment / Plan
-
This patient is an 84-year-old woman with a history of hypertension and dementia with a recent femur fracture with repair. She does have chronic anemia and did have a drop in hemoglobin seen on routine exams. She did respond appropriately to 2
units of blood. She has been stable since admission and hgb has not dropped. For now would do the following:
1. PPI once a day
2. consider avoiding fosamax
3. d/w primary team and will hold on EGD and I agree
4. Diet (whatever is previous diet)
will sign off
Subjective
Subjective
Date of Service: February 10, 2025
Pt without any pain or bleeding
Objective
Data Reviewed
Laboratory Data:
Laboratory Results
02/10/25 05:28
02/10/25 05:28
Laboratory Results
Magnesium 2.1 mg/dl (1.6-2.3) 02/10/25 05:28
Total Bilirubin 0.8 mg/dl (0.2-1.3) 02/10/25 05:28
AST 21 U/L (14-36) 02/10/25 05:28
ALT 14 U/L (0-35) 02/10/25 05:28
Alkaline Phosphatase 139 U/L (38-126) H 02/10/25 05:28
Vital Signs and I&O:
Vital Signs
Temp Pulse Resp BP Pulse Ox
98.0 F 70 12 153/67 96
02/10/25 07:39 02/10/25 06:00 02/10/25 06:00 02/10/25 06:00 02/10/25 06:00
I&O
02/09/25 02/10/25 02/11/25
06:59 06:59 06:59
Intake Total 500 / 500 120 / 120
Balance 500 / 500 120 / 120
Physical Exam
Physical Exam
GI: Soft, Non Distended and Non Tender
--- NOTE | 2025-02-10 10:34 | W.PN.CD ---
Today's Communication / Plan
-
- Telemetry review shows sinus arrhythmia, sinus bradycardia with PACs; now improved with heart rates in the 70s.
- Echocardiogram today.
- Will place on amlodipine 5 mg daily.
Impression / Plan
-
In summary, 84 yo F PMH HTN, osteoporosis, mild aortic stenosis, chronic hyponatremia, dementia, chronic ambulatory dysfunction p/w low hemoglobin to 6.6; now 10.1 (s/p 2 units pRBC) and found to be bradycardic to the 30s, prompting a cardiology
consult.
Bradycardia
- Telemetry review shows sinus arrhythmia, sinus bradycardia with PACs; now improved with heart rates in the 70s.
- etiologies: medication toxicity, ischemia, autonomic imbalance
- medication review does not reveal a medication (nifedipine? which is being held) clearly associated with bradycardia
- p-waves visible, pointing away from atrial fibrillation (on my read)
- EKG does not show signs of ischemia (pointing away from ACS), and she also denies any chest pain
- No evidence of 2nd/3rd degree heart block.
- Echocardiogram today.
HTN
- Patient now hypertensive.
- Will place on amlodipine 5 mg daily.
Aortic stenosis
- murmur is appreciable on physical exam
- Echocardiogram today.
Physical Exam
Vital Signs/Labs
Vital Signs
Temp Pulse Resp BP Pulse Ox
98.0 F 70 12 153/67 96
02/10/25 07:39 02/10/25 06:00 02/10/25 06:00 02/10/25 06:00 02/10/25 06:00
02/09/25 02/10/25 02/11/25
06:59 06:59 06:59
Actual Weight 57 kg
02/10/25 05:28
02/10/25 05:28
Magnesium 2.1 mg/dl (1.6-2.3) 02/10/25 05:28
TSH 1.64 uIU/ml (0.47-4.68) 02/09/25 06:30
Physical Exam
Constitutional: No acute distress and Comfortable
EENT: Anicteric
Cardiovascular: Rhythm & rate is regular, Pedal edema is absent, Systolic murmur present (2/) and S1S2 is normal
Respiratory: Respiratory effort normal and Lungs clear to auscul.
Neuro/Psych: Alert
Other: Skin (Warm, dry)
Data Reviewed
-
Date of Service: February 10, 2025
EKG: Tracing Personally Visualized and interpreted (Telemetry: Sinus rhythm)
Medical Tests (PFT, Pathology etc): Discussed with Nurse
Labs: Labs Reviewed by me
--- NOTE | 2025-02-10 13:36 | W.PN.UPDATE ---
Update Note
Progress Note Update
echo shows normal LVEF and moderate .
please call us back with additional questions.
--- NOTE | 2025-02-10 15:26 | CM ---
Patient seen at bedside with physician in imu. Patient for possible discharge tomorrow to [facility] if bed available. CM spoke with daughter Mariaa who is in [place] and she indicated that she is 5 hours behind our time and would be available for texting
at number listed. CM also sent updated clinicals to [facility] and [facility] if no beds available at [facility] daughter would request referrals to the two SNFs listed, pending responses regarding available beds. CM will continue to follow for discharge planning
needs.
Plan; SNF return pending bed availability.
--- NOTE | 2025-02-10 17:38 | W.PN.HOSP.TC ---
Addendum entered and electronically signed by Jessica Manuel MD 02/10/25 19:10:
I saw and evaluated the patient independently. I reviewed and discussed the resident�s note and agree with findings and plan as documented by Dr. Lucas.
GENERAL: well developed, well nourished, female in no apparent distress
HEENT: NC/AT
HEART: regular rate and rhythm, +S1, +S2, YESSY, bradycardic
LUNGS : clear to auscultation bilaterally
ABDOM: soft, nontender, nondistended, + bowel sounds
EXT: no cyanosis, clubbing, or edema
NEUROLOGIC: apparent dementia
Acute on chronic anemia--likely etiologies are blood loss from PUD/upper GI bleed/gastritis from asa use for DVT prophylaxis vs post op anemia from long bone fracture and IVF dilution from hip fracture and OR repair (had 1 unit pRBC at that
admission)--has heme positive stool--HGB 6.5 with improvement to 10.6 after 2 units pRBC--no further drop--apprec GI--hold off on EGD--advance diet--hopeful d/c tomorrow
Patient has history of recent admission for left hip fracture s/p intramedullary nail fixation, requiring 1 PRBC during admission--no signs of iron deficiency--B12 and folate WNL--do not believe hemolyzing--LDH 283--retic count
increased--haptoglobin pending--apprec GI--may need EGD if HGB drops again--advance diet
Sinus Bradycardia with marked sinus arrhythmia--apprec Cards--ECHO with mod , preserved EF--meds per cards
Essential hypertension--Will hold Nifedipine
Osteoporosis--Hold off on Alendronate
General Anxiety Disorder--Continue Escitalopram
Senile Dementia--Monitor for episodes of agitation
DVT Proph--SCD's
Code status--DNR: As per SNF records
for d/c tomorrow
Original Note:
Today's Communication/Plan
-
As per GI, continue patient on Pantaprazole 40 mg PO Daily -- Stop Alendronate
As per Cardiology, start patient on Amlodipine 5 mg for HTN
EGD will not be done -- Patient placed back on regular diet.
Patient transferred to Med/Surg Floor.
Assessment / Plan
Assessment / Plan
Assessment: 84 year old female with PMH of dementia, hypertension, osteoporosis, compression fractures, femur fracture last month s/p blood transfusion, chronic ambulatory dysfunction (uses walker), mild aortic stenosis, presenting with anemia on
outpatient labs. No sxs. Vitals unremarkable. Rectal exam showed dark brown heme positive stool. Patient with asymptomatic acute blood loss anemia secondary to upper GI bleeding. 2 Units of PRBC for transfusion.
#Acute on chronic anemia
Hemoglobin at 6.5 at admission--improved to 10.6
Stool Hemoccult positive
Likely etiologies are blood loss from PUD/upper GI bleed/gastritis from aspirin use for DVT ppx vs Post op anemia from long bone fracture and IVF dilution from hip fracture and OR repair (had 1 unit pRBC at that admission)
Hemoglobin remained stable so patient does not need EGD
Diet is switched from NPO to regular
Pantaprazole 40 mg PO Daily
#Sinus Bradycardia with marked sinus arrhythmia
Echo results: EF was normal.
#Essential hypertension
Will hold Nifedipine
Placed on Amlodipine 5 mg Daily
#Osteoporosis
Avoid Alendronate as per GI
#General Anxiety Disorder
Continue Escitalopram
#Senile Dementia
Monitor for episodes of agitation
DVT PPx:SCD's
Diet: NPO
DNz
Anticipated Discharge: 24 - 48 hours
Subjective/Interval History
-
Date of Service: February 10, 2025
Patients BP spiked to 187/73 with HR 56.
She did not have any new complaints
Was given one time dose of 5 mg Hydralazine
BP reduced to 154/58 HR 68.
Objective Data
-
Labs:
Laboratory Results
02/10/25
05:28
WBC 8.2
Hgb 10.6 L
Hct 32.4 L
Plt Count 430 H
Sodium 131 L
Potassium 4.2
Chloride 103
Carbon Dioxide 24
BUN 14
Creatinine 0.6
Glucose 82
Calcium 8.6
Total Bilirubin 0.8
AST 21
ALT 14
Alkaline Phosphatase 139 H
Vital Signs:
Vital Signs
Temp Pulse Resp BP Pulse Ox
97.5 F 75 14 118/51 97
02/10/25 15:27 02/10/25 16:00 02/10/25 16:00 02/10/25 16:00 02/10/25 16:00
I&O
02/09/25 02/10/25 02/11/25
06:59 06:59 06:59
Intake Total 500 / 500 120 / 120
Balance 500 / 500 120 / 120
EKG (02/08/25): NSR
EKG (02/09/25): Sinus Bradycardia with marked sinus arrhythmia
Echo (02/10/25): Normal LVEF 65-70% and moderate
Review of Systems
-
Unable to obtain full review of systems at this time due to: Dementia
History Source: Patient and Records
All other systems: Reviewed and negative
Physical Exam
-
General: No Apparent Distress, Comfortable and Appears Chronically Ill
HEENT: Normocephalic and Atraumatic
Respiratory: Clear to Auscultation
Cardiac: Regular Rhythm, S1/S2 and Murmur (systolic ejection murmur)
Breast: Deferred by me
GI: Soft, Nontender, Nondistended and Normal Bowel Sounds
Musculoskeletal: No Clubbing, No Cyanosis and No Edema
Neuro: Awake and Alert
Psych: Calm and Apparent Dementia
Data Reviewed
-
Medical Tests (Nuc Med, Echo etc): Report Reviewed by me and Discussed with Physician
Labs: Labs Reviewed by me and Discussed with Physician
[2025-02-10] MEDS: VITAMIN D3 (cholecalciferol) 25 MCG PO (17:46)
[2025-02-10] MEDS: VITAMIN C 2000 MG PO (17:46)
--- NOTE | 2025-02-10 21:04 | PTCARENOTE ---
Assumed care of pt from dayshift RN after change of shift report. Pt is oriented to self. inc of large amount of urine. bed alarm in use. m/s level of care. safe environment maintained.
[2025-02-11] MEDS: TYLENOL PO ×2 (02:18→04:26)
[2025-02-11 07:27] LABS: Hematocrit 30.8 % (37.0-47.0); Hemoglobin 10.1 g/dL (12.0-16.0); Mean Corp Hgb Conc. 32.8 g/dL (33.0-37.0); Mean Corpuscular Volume 88.8 fL (81.0-99.0); Nucleated Red Blood Cells % 0 %; Platelet Count 389 10^3/uL (130-400); Red Cell Dist. Width 16.3 % (11.5-14.5)
[2025-02-11 07:45] VITALS: BP 137/52
[2025-02-11 08:03] LABS: ALT (SGPT) 14 U/L (0-35); AST (SGOT) 20 U/L (14-36); Albumin 3.3 g/dl (3.5-5.0); Alkaline Phosphatase 127 U/L (38-126); Blood Urea Nitrogen 18 mg/dl (7-17); Calcium 8.3 mg/dl (8.4-10.2); Carbon Dioxide 27 mmol/L (22-30); Chloride 102 mmol/L (98-107); Estimated Creatinine Clearance 48 ml/min; Glucose 97 mg/dl (70-99); Magnesium 2.2 mg/dl (1.6-2.3); Potassium 4.0 mmol/L (3.5-5.1); Sodium 131 mmol/L (135-145); Total Protein 5.9 g/dl (6.3-8.2); eGFR > 60.00
[2025-02-11] MEDS: TYLENOL 650 MG PO ×3 (09:15→16:02)
[2025-02-11] MEDS: FEOSOL 325 MG PO (09:16)
[2025-02-11] MEDS: SENOKOT 17.2 MG PO (09:16)
[2025-02-11] MEDS: NORVASC 5 MG PO (09:16)
[2025-02-11] MEDS: COLACE 100 MG PO (09:16)
[2025-02-11] MEDS: LEXAPRO 10 MG PO (09:16)
[2025-02-11] MEDS: NSS (PRESERVATIVE FREE) 10 ML IV (09:17)
[2025-02-11] MEDS: PROTONIX IV 40 MG IV (09:17)
[2025-02-11] MEDS: REFRESH EYE DROPS (PF) 1 DROPS BOTH EYES (09:17)
[2025-02-11] MEDS: FLUSH (NSS) 1 FLUSH IV (09:17)
--- NOTE | 2025-02-11 11:17 | W.PN.HOSP.TC ---
Addendum entered and electronically signed by Jessica Manuel MD 02/11/25 17:24:
I saw and evaluated the patient independently. I reviewed and discussed the resident�s note and agree with findings and plan as documented by Dr. Lucas.
GENERAL: well developed, well nourished, female in no apparent distress
HEENT: NC/AT
HEART: regular rate and rhythm, +S1, +S2, YESSY, bradycardic
LUNGS : clear to auscultation bilaterally
ABDOM: soft, nontender, nondistended, + bowel sounds
EXT: no cyanosis, clubbing, or edema
NEUROLOGIC: apparent dementia
Acute on chronic anemia--likely etiologies are blood loss from PUD/upper GI bleed/gastritis from asa use for DVT prophylaxis vs post op anemia from long bone fracture and IVF dilution from hip fracture and OR repair (had 1 unit pRBC at that
admission)--has heme positive stool--HGB 6.5 with improvement to 10.6 after 2 units pRBC--no further drop--apprec GI--hold off on EGD--advance diet--cont asa and add PPI--OK for d/c
Patient has history of recent admission for left hip fracture s/p intramedullary nail fixation, requiring 1 PRBC during admission--no signs of iron deficiency--B12 and folate WNL--do not believe hemolyzing--LDH 283--retic count
increased--haptoglobin increased--apprec GI
Sinus Bradycardia with marked sinus arrhythmia--apprec Cards--ECHO with mod , preserved EF--meds per cards
Essential hypertension--Will hold Nifedipine
Osteoporosis--Hold off on Alendronate
General Anxiety Disorder--Continue Escitalopram
Senile Dementia--Monitor for episodes of agitation
DVT Proph--SCD's
Code status--DNR: As per SNF records
for d/c
Original Note:
Today's Communication/Plan
-
Continue patient on Aspirin 325 mg
Continue patient on Pantoprazole 40 mg
Continue patient on Amlodipine 5 mg
Hold Nifedipine
Hold Bisphosphonates
Start Prednisone taper
Prepare patient for discharge today.
Assessment / Plan
Assessment / Plan
Assessment: 84 year old female with PMH of dementia, hypertension, osteoporosis, compression fractures, femur fracture last month s/p blood transfusion, chronic ambulatory dysfunction (uses walker), mild aortic stenosis, presenting with anemia on
outpatient labs. No sxs. Vitals unremarkable. Rectal exam showed dark brown heme positive stool. Patient with asymptomatic acute blood loss anemia secondary to upper GI bleeding. 2 Units of PRBC for transfusion.
#Acute on chronic anemia
Hemoglobin at 6.5 at admission--improved to 10.1 (mostly consistent rise)
Stool Hemoccult positive
Likely etiologies are blood loss from PUD/upper GI bleed/gastritis from aspirin use for DVT ppx vs Post op anemia from long bone fracture and IVF dilution From hip fracture and OR repair (had 1 unit pRBC at that admission)
Hemoglobin remained stable so patient does not need EGD
Diet is switched from NPO to regular
Pantaprazole 40 mg PO Daily
Prednisone Taper ordered
#Sinus Bradycardia with marked sinus arrhythmia
Echo results: EF was normal.
Back in NSR
#Essential hypertension
Will hold Nifedipine
Started on Amlodipine 5 mg Daily
#Osteoporosis
Avoid Alendronate as per GI
#General Anxiety Disorder
Continue Escitalopram
#Senile Dementia
Monitor for episodes of agitation
DVT PPx:SCD's
Diet: Regular
Anticipated Discharge: Today
Subjective/Interval History
-
Date of Service: February 11, 2025
No acute overnight event was reported in regards to this patient.
Objective Data
-
Labs:
Laboratory Results
02/11/25
07:13
WBC 7.5
Hgb 10.1 L
Hct 30.8 L
Plt Count 389
Sodium 131 L
Potassium 4.0
Chloride 102
Carbon Dioxide 27
BUN 18 H
Creatinine 0.6
Glucose 97
Calcium 8.3 L
Total Bilirubin 0.6
AST 20
ALT 14
Alkaline Phosphatase 127 H
Vital Signs:
Vital Signs
Temp Pulse Resp BP Pulse Ox
97.9 F 67 18 137/52 97
02/11/25 07:45 02/11/25 09:16 02/11/25 07:45 02/11/25 09:16 02/11/25 09:09
I&O
02/10/25 02/11/25 02/12/25
06:59 06:59 06:59
Intake Total 120 / 120
Balance 120 / 120
EKG (02/08/25): NSR
EKG (02/09/25): Sinus Bradycardia with marked sinus arrhythmia
Echo (02/10/25): Normal LVEF 65-70% and moderate
Review of Systems
-
Unable to obtain full review of systems at this time due to: Dementia
History Source: Patient and Records
All other systems: Reviewed and negative
Physical Exam
-
General: No Apparent Distress, Comfortable and Appears Chronically Ill
HEENT: Normocephalic and Atraumatic
Respiratory: Clear to Auscultation
Cardiac: Regular Rhythm, S1/S2 and Murmur (systolic ejection murmur)
Breast: Deferred by me
GI: Soft, Nontender, Nondistended and Normal Bowel Sounds
Musculoskeletal: No Clubbing, No Cyanosis and No Edema
Neuro: Awake and Alert
Psych: Calm and Apparent Dementia
Data Reviewed
-
Medical Tests (Nuc Med, Echo etc): Report Reviewed by me and Discussed with Physician
Labs: Labs Reviewed by me and Discussed with Physician
--- NOTE | 2025-02-11 11:21 | W.DCSUMMARY ---
Addendum entered and electronically signed by Jessica Manuel MD 02/11/25 17:22:
Read, reviewed, and agree. See same day progress note for additional details. Time spent coordinating care, DC planning, review of DC plan of care with resident, transition of care, review of records in EMR, med rec, consults, notes, d/w
consultants, nursing, family, and CM = 37 minutes
Correction to documentation below:
Patient was not hemolyzing. Haptoglobin was elevated (not low as documented below).
Original Note:
Discharge Summary
Discharge Data
Date of Admission: 02/08/25
Date of Discharge: 02/11/25
-
Pending Results: No
Hospital Course
Discharging Physician : Dr. Jessica Manuel
Disposition : SNF
Primary care physician : Dr. Fidel Baldwin
Principal Discharge diagnosis : Acute on chronic anemia
Chronic Discharge diagnosis : Sinus bradycardia with marked sinus arrhythmia, Essential HTN, Osteoporosis, LORNA, Senile Dementia
Hospital Course : 84-year-old female with history of hypertension, osteoporosis, mild aortic stenosis, chronic hyponatremia, hypercholesterolemia, dementia, chronic ambulatory dysfunction presents to the ER with concerns for low hemoglobin as an
outpatient at nursing facility. Patient has history of dementia, she is conversant and pleasant, but not a reliable historian. Patient does not report any blood in the stools, melena, hematemesis. She is not on any blood thinners, does not use
NSAIDs on a chronic basis. Patient had a recent hospital admission for left fracture femur s/p intramedullary nail, she required 1 PRBC for postoperative anemia before discharge. ED course�Vital stable at presentation, hemoglobin�6.5,
hematocrit�21.4. Sodium�136, BUN/creatinine�18/0.6. Glucose 104. Calcium�8.3, ALP�140. Patient was admitted. Workup showed no signs of iron deficiency--B12 and folate WNL--do not believe hemolyzing--LDH 283--retic count increased--haptoglobin
low. Transfused 2 PRBC with subsequent increase in hemoglobin from 6.5 to 10.6. Patient was started on Pantaprazole 40 mg IV Daily. Patients BP spiked to 187/73 with HR 56. She did not have any new complaints and was given one time dose of 5 mg
Hydralazine. BP reduced to 154/58 HR 68. As per Cardiology, patient started on Amlodipine 5 mg for HTN. EGD will not be done because hemoglobin remained steady. Patient placed back on regular diet and transferred to Med/Surg Floor. Patient has been
improving over the course of her hospital stay. She denies any constitutional symptoms like nausea, vomiting, dizziness, constipation or diarrhea. She denies shortness of breath or feeling of weakness. Patient is ready for discharge.
Important imaging findings :
EKG (02/08/25): NSR
EKG (02/09/25): Sinus Bradycardia with marked sinus arrhythmia
Echo (02/10/25): Normal LVEF 65-70% and moderate
Procedure findings :
Discharge Plan
-
Patient Disposition: Jail/SNF
Discharge Diagnosis/Procedures: Acute on chronic anemia, Sinus bradycardia with marked sinus arrhythmia, Essential hypertension, Osteoporosis, General anxiety disorder, Senile dementia
Condition: Fair
Diet: Regular
Activity: With assistance and As tolerated
Driving Restrictions: As prior to admission
Bathing Restrictions: None
Blood Work: Follow up CBC, CMP, Vitals with PCP
Specialty Instructions: Weigh Daily- Call MD for wt gain/loss 3 lbs overnight/5 lbs in 1 week
Referrals:
Fidel Baldwin MD [Family Provider, Family Practice] - in one week
Referral Note: F/U CBC, CMP with PCP
Prescriptions:
New
amlodipine 5 mg Tablet
5 mg PO DAILY Qty: 30 0RF
pantoprazole [Protonix] 40 mg tablet,delayed release (DR/EC)
40 mg PO DAILY Qty: 30 0RF
Continued
omega-3 fatty acids-fish oil 684-1,200 mg Capsule,Delayed Release(Dr/Ec)
1 cap PO DAILY Qty: 0
lidocaine 4 % Adhesive Patch,Medicated
1 patch TOPICAL DAILYPRN PRN (Reason: LOWER BACK PAIN)
sennosides [Mary-arleen] 8.6 mg Tablet
17.2 mg PO BID Qty: 60 0RF
ascorbic acid (vitamin C) [Vitamin C] 1,000 mg Tablet
2,000 mg PO QPM Qty: 0 0RF
acetaminophen 325 mg Tablet
650 mg PO Q4HWA Qty: 100 0RF
ferrous sulfate 325 mg (65 mg iron) tablet
325 mg PO Q OTHER DAY Qty: 30 0RF
docusate sodium 100 mg Capsule
100 mg PO BID Qty: 60 0RF
escitalopram oxalate [Lexapro] 10 mg Tablet
10 mg PO DAILY Qty: 0 0RF
cholecalciferol (vitamin D3) [Vitamin D3] 25 mcg (1,000 unit) Tablet
25 mcg PO QPM Qty: 0 0RF
Refresh Optive 0.5-0.9 % Drops
1 drp BOTH EYES BID Qty: 0 0RF
cranberry extract [Ellura] 200 mg Capsule
200 mg PO QPM Qty: 0 0RF
omega 7-zzk-vdr-fish oil [Fish Oil] 1,000 (120-180) mg Capsule
1 cap PO DAILY Qty: 0 0RF
d-mannose 500 mg Capsule
500 mg PO QPM Qty: 0 0RF
aspirin 325 mg Tablet
325 mg PO DAILY Qty: 28 0RF
Discontinued
alendronate [Fosamax] 70 mg Tablet
70 mg PO DYKES
nifedipine 30 mg Tablet Extended Release
30 mg PO DAILY 30 Days Qty: 30 0RF
Discharge Orders:
Discharge Patient (As Directed); Ordered 02/11/25
Ordered By: Rajan Lucas
Discharge Date and Time
Print Language: BURMESE
[2025-02-11 15:20] VITALS: BP 124/56
--- NOTE | 2025-02-11 15:54 | CM ---
Patient for discharge to [facility] today. Pending ambulance time, documentation forms provided to unit aide tech. Please call Report [phone]/ . Patient family aware and in agreement with plan. CM will continue to follow for discharge
planning needs.
Plan; return to SNF
--- NOTE | 2025-02-11 15:59 | PTCARENOTE ---
Pt awakaeand alert, oriented to self/birthdate/occ to place. GARCIA well, assists with positioning. Pleasant and cooperative. VSS. On room air- pulse ox 98%, no SOB noted. Abd soft, rounded, neda PO well. Incont large amts BM. Incont large amts
bry urine. Resting in bed at present. Willcontinue to monitor.
[2025-02-11] MEDS: VITAMIN C 2000 MG PO (17:21)
[2025-02-11] MEDS: VITAMIN D3 (cholecalciferol) 25 MCG PO (17:21)
== END 2025-02-11 17:32 | DRG 378 ==
LOC: 4 EAST ACU 18:23
PROVIDERS: Student in an Organized Health Care Education/Training Program; ADMITTING PHYSICIAN Hospitalist; ATTENDING PHYSICIAN Internal Medicine; CONSULT PHYSICIAN Internal Medicine; EMERGENCY PHYSICIAN Emergency Medicine; FAMILY PHYSICIAN Family Medicine
PROC: 30233N1 Transfusion of Nonautologous Red Blood Cells into Peripheral Vein, Percutaneous Approach (ICD-10-PCS; 2025-02-08)
DX: K28.4 Chronic or unspecified gastrojejunal ulcer with hemorrhage (principal); D62 Acute posthemorrhagic anemia; F03.A4 Unspecified dementia, mild, with anxiety; D63.8 Anemia in other chronic diseases classified elsewhere; R26.2 Difficulty in walking, not elsewhere classified; I10 Essential (primary) hypertension; M81.0 Age-related osteoporosis without current pathological fracture; F41.1 Generalized anxiety disorder; Z66 Do not resuscitate; Z79.82 Long term (current) use of aspirin; Z79.899 Other long term (current) drug therapy
CPT/HCPCS: 36415; 36430; 80048; 80053; 82248; 82607; 82728; 82746; 83010; 83540; 83550; 83615; 83735; 84443; 85025; 85027; 85045; 86850; 86900; 86901; 86920; 87070; 93005; 93306; 96374; 99291; P9016

== ENCOUNTER → 2025-02-16 10:57 | Outpatient (REF) | payer OTHER, MEDICARE, BC, SELFPAY ==
[2025-02-16 11:29] LABS: Hematocrit 31.3 % (37.0-47.0); Hemoglobin 9.5 g/dL (12.0-16.0); Mean Corp Hgb Conc. 30.4 g/dL (33.0-37.0); Mean Corpuscular Volume 92.9 fL (81.0-99.0); Platelet Count 357 10^3/uL (130-400); Red Cell Dist. Width 15.8 % (11.5-14.5)
[2025-02-16 11:44] LABS: ALT (SGPT) 15 U/L (0-35); AST (SGOT) 23 U/L (14-36); Albumin 3.2 g/dl (3.5-5.0); Alkaline Phosphatase 104 U/L (38-126); Blood Urea Nitrogen 19 mg/dl (7-17); Calcium 8.7 mg/dl (8.4-10.2); Carbon Dioxide 29 mmol/L (22-30); Chloride 102 mmol/L (98-107); Glucose 77 mg/dl (70-99); Magnesium 1.9 mg/dl (1.6-2.3); Potassium 4.0 mmol/L (3.5-5.1); Sodium 132 mmol/L (135-145); Total Protein 5.9 g/dl (6.3-8.2); eGFR > 60.00
== END ==
LOC: OLABWHC 10:57
PROVIDERS: ATTENDING PHYSICIAN Family Medicine
DX: D64.9 Anemia, unspecified (principal); K92.2 Gastrointestinal hemorrhage, unspecified
CPT/HCPCS: 36415; 80053; 83735; 85027